=== PATIENT | male | born 1995 | race Caucasian/White ===

== ENCOUNTER 2021-09-28 12:40 | Outpatient (CLI) | payer MEDICAID, SELFPAY ==
--- NOTE | 2021-09-28 | ASPIG_PTH ---
PATIENT: JORGE SPARROW LOC: [facility] U#:[id number] AGE/SX: 26/M ROOM: RE09/28/[address]: Dr. Anupam Wade MD : 1995 BED: DIS: 09/28/2021 SPEC #: [id number] RECD: 09/28/21 12:37 STATUS: SHMUEL ARMOND #: [id number] MARIBEL: 09/28/21 00:[address]: Anupam Wade DEPT: CYTOLOGY RECD BY: Sagar Acevedo ENTERED: 09/28/21 13:08 SP TYPE: ASP OUT OTHR DR: Dr. Miguel Angel Rich, DO Tissues: A - Thyroid gland, NOS B - Thyroid gland, NOS Procedures: FNA Specimen Adequacy Special Stain Group II Surgery Specimen Level IV Cytology Other HEADER OPERATION: Left thyroid fine needle aspiration PRE-OP DIAGNOSIS: Left thyroid nodule TISSUE SUBMITTED: A - Left thyroid nodule fluid, B - Left thyroid nodule x4 slides DIAGNOSIS CYTOLOGY A. Fine needle aspiration, left thyroid nodule (cytospin and cell block): Atypical follicular cells of undetermined clinically significance. B. Fine needle aspiration, left thyroid nodule (smears): Negative for malignant cells. See comment. AM:orlin 10/01/2021 COMMENT B. Only very rare follicular cells are present. The specimen is inadequate for full evaluation. Clinical correlation is suggested. Case has been reviewed in consultation with Dr. Abdul who concurs with the above diagnosis. IDC:SJ CYTOLOGY STUDY Slides are reviewed. CYTOLOGY GROSS A - Received is 40 ml of red cloudy fluid labeled with the patient's name and and designated per the requisition as left thyroid. Submitted for cytology preparation including cell block. B - Received are four smears labeled with the patient's name and designated per the requisition as left thyroid. Submitted for staining. / orlin 09/28/2021 TC:? CPT: 40711, 62450 x2
== END 2021-09-28 23:59 | disposition home or self-care (01) ==
LOC: LABSPEC 12:45
PROVIDERS: PCP Family Medicine; Visit Provider Surgery
DX: E04.1 Nontoxic single thyroid nodule (principal)
CPT/HCPCS: 88161; 88172; 88305; 88313

== ENCOUNTER 2021-10-26 15:56 | Outpatient (CLI) | payer MEDICAID, SELFPAY ==
--- NOTE | 2021-10-26 | IMM_PTH ---
PATIENT: JORGE SPARROW LOC: [facility] U#:[id number] AGE/SX: 26/M ROOM: RE10/26/[address]: Dr. Anupam Wade MD : 1995 BED: DIS: 10/26/2021 SPEC #: [id number] RECD: 10/30/21 11:58 STATUS: SHMUEL LEAHY #: [id number] MARIBEL: 10/26/21 00:[address]: Anupam Wade DEPT: IMMUNOHISTOCHEMISTRY RECD BY: Bree Mendez ENTERED: 10/30/21 11:59 SP TYPE: IMMUNO OTHR DR: Dr. Miguel Angel Rich, Tissues: A - Thyroid gland, NOS Procedures: HBME (initial) CD56 (add) CK19 (add) GAL-3 (add) PHYSICIAN & INSTITUTION [place] [address] SPECIMEN INFORMATION: Tissue Source: A ? Left thyroid nodule Clinical Info: Left thyroid nodule Specimen Number: [id number] CPT code: 44823, 56859 x3 METHODOLOGY: Deparaffinized sections of prefer/formalin-fixed tissue or PAP/DQ stained slides are incubated with monoclonal/polyclonal antibodies/oligonucleotide probes. Localization is made via biotin free immunoperoxidase method. Appropriate controls are performed and reacted as expected. Results on target cell population are indicated in the following table: RESULTS: ANTIBODY / CLONE RESULT Block A HBME1 (HBME-1) positive CK19 (A53-B/A2.26) positive GAL3 (9C4) positive, dim CD56 (123C3.D5) negative These tests were developed and their performance characteristics determined by [facility]. They may not have been cleared or approved by the U.S. Food and Drug Administration. The FDA has determined that such clearance or approval is not necessary. The above immunohistochemical/dualISH markers are ordered and reviewed by the Pathologist. INTERPRETATION: A. Left thyroid nodule, fine needle aspiration (cell block): Atypical cells, suspicious for papillary thyroid carcinoma. AM:orlin 11/13/2021
--- NOTE | 2021-10-26 10:30 | FLU_PTH ---
PATIENT: JORGE SPARROW LOC: [facility] U#:[id number] AGE/SX: 26/M ROOM: RE10/26/[address]: Dr. Anupam Wade MD : 1995 BED: DIS: 10/26/2021 SPEC #: [id number] RECD: 10/26/21 15:50 STATUS: SHMUEL ARMOND #: [id number] MARIBEL: 10/26/21 10:[address]: Anupam Wade DEPT: CYTOLOGY RECD BY: Kristen Heath ENTERED: 10/29/21 08:24 SP TYPE: Fluid OTHR DR: Dr. Miguel Angel Rich DO Tissues: A - Thyroid gland, NOS B - Thyroid gland, NOS Procedures: Special Stain Group II Surgery Specimen Level IV Cytospin Fluid Cytology Other HEADER OPERATION: Left thyroid fine needle aspiration PRE-OP DIAGNOSIS: Left thyroid nodule TISSUE SUBMITTED: A ? Left thyroid nodule fluid, B ? Left thyroid nodule x4 slides DIAGNOSIS CYTOLOGY A. Fine needle aspiration, left thyroid nodule (smears and cell block): Atypical follicular cells suspicious for papillary thyroid carcinoma. See comment. B. Fine needle aspiration, left thyroid nodule (smears): Atypical follicular cells suspicious for papillary thyroid carcinoma. See comment. AM:orlin 11/13/2021 COMMENT A. The specimen is adequate for evaluation. Immunohistochemistry ([id number]) supports the above diagnosis. B. The specimen is adequate for evaluation. This case is seen in consultation with Dr. Olmstead of [employer] who concurs with the diagnosis. Complete consultative report is viewable in EMR. Reference is made to the patient's previous fine needle aspiration, left thyroid nodule ([id number]) in which atypical follicular cells of undetermined clinical significance were identified. CYTOLOGY STUDY Slides are reviewed. CYTOLOGY GROSS A - Received is 30 ml of pink cloudy fluid labeled with the patient's name and and designated per the requisition as left thyroid nodule. Submitted for cytology preparation including cell block. B - Received are four smears labeled with the patient's name and designated per the requisition as left thyroid nodule. Submitted for staining. / orlin 10/29/2021 TC:? CPT: 50570 x2, 55835
== END 2021-10-26 23:59 | disposition home or self-care (01) ==
LOC: LABSPEC 15:57
PROVIDERS: PCP Family Medicine; Visit Provider Surgery
DX: E04.1 Nontoxic single thyroid nodule (principal)
CPT/HCPCS: 88108; 88161; 88305; 88313; 88341; 88342

== ENCOUNTER 2021-11-26 16:46 | Outpatient (CLI) | payer MEDICAID, SELFPAY ==
[2021-11-26 18:20] LABS: Calcium,Total 8.8 mg/dL (8.5-10.1); T4 Total, Thyroxin 8.6 ug/dL (4.5-12.1)
[2021-11-26 18:22] LABS: T3 Total - Triiodothyronine 1.34 ng/mL (0.6-1.81)
[2021-11-27 07:43] LABS: PTHIN 39.7 pg/mL (18.4-80.1)
[2021-11-29 20:07] LABS: Vitamin D 1,25-Dihydroxy 35.4 pg/mL (19.9-79.3)
== END 2021-11-26 23:59 | disposition home or self-care (01) ==
PROVIDERS: PCP Family Medicine; Visit Provider Surgery
DX: C73 Malignant neoplasm of thyroid gland (principal)
CPT/HCPCS: 36415; 82310; 82652; 83970; 84436; 84443; 84480

== ENCOUNTER 2021-12-24 12:55 | Observation (INO) | payer MEDICAID, SELFPAY ==
[2021-12-21 10:53] LABS: Hematocrit 48.1 % (40-54); Hemoglobin 16.5 g/dL (13.0-16.5); Mean Corp Hgb Conc 34.3 g/dL (32-36); Mean Corpuscular Hgb 30.8 pg (27.0-32.0); Mean Corpuscular Volume 89.9 fL (80-94); Mean Platelet Vol. 10.6 fl (6.2-12.0); Platelet Count 266 K/mm3 (150-450); RBC Distribution Width CV 12.3 % (11.6-14.6); RBC Distribution Width SD 40.7 fl (35.1-43.9); Red Blood Count 5.35 M/mm3 (4.6-6.2); White Blood Count 5.2 K/mm3 (4.4-11.0)
[2021-12-21 11:18] LABS: Anion Gap 7 (5-15); BUN 11 mg/dL (7-18); BUN/Creat Ratio 13.8 RATIO (10-20); Calcium,Total 9.7 mg/dL (8.5-10.1); Chloride 104 mmol/L (98-107); EST Glomerular Filtration Rate 126 mL/min (>60); Est Glom Filt Rate - Afr Amer 153 mL/min (>60); Glucose 89 mg/dL (74-106); Potassium 4.4 mmol/L (3.5-5.1); Sodium Level 139 mmol/L (136-145)
[2021-12-24] VITALS (9 sets, daily range): BP systolic 101–160; BP diastolic 53–97; PULSE 92–110; RESP 16–20; TEMP 36.5–37.3; O2SAT 93–100; BMI 25.7
--- NOTE | 2021-12-24 | THYROID_PTH ---
PATIENT: JORGE SPARROW LOC: [facility] U#:[id number] AGE/SX: 26/M ROOM: AZ323 RE12/24/[address]: Dr. Anupam Wade MD : 1995 BED: 1 DIS: 12/25/2021 SPEC #: [id number] RECD: 12/24/21 11:53 STATUS: SHMUEL RESaundra #: [id number] MARIBEL: 12/24/21 00:[address]: Anupam Wade DEPT: SURGICAL PATHOLOGY RECD BY: Bree Mendez ENTERED: 12/24/21 12:45 SP TYPE: THYROID OTHR DR: DO Dr. Woodrow Barrientos MD Tissues: A - Parathyroid B - Thyroid gland, NOS C - Neck, NOS Procedures: Frozen Section (charge) Surgery Specimen Level IV Surgery Specimen Level V HEADER OPERATION: Total thyroidectomy with intraoperative nerve monitoring PRE-OP DIAGNOSIS: Left thyroid nodule TISSUE SUBMITTED: A - ? Left inferior parathyroid tissue biopsy, B ? Thyroid, suture mcgovern right superior pole, C ? Central neck tissue FROZEN SECTION DIAGNOSIS A. ? Left inferior parathyroid tissue, biopsy: Lymph node tissue, metastatic papillary carcinoma. ONEAL:orlin 12/24/2021 Case has been reviewed in consultation with Dr. Khan who concurs with the above diagnosis. IDC:AM MICROSCOPIC DIAGNOSIS A. ? Left inferior parathyroid tissue, biopsy: A portion of lymph node tissue with metastatic papillary carcinoma. B. Thyroid, total thyroidectomy: Papillary thyroid carcinoma. See cancer summary in the comment section. C. Central neck tissue, lymph node dissection: 11 out of 22 lymph nodes positive for metastatic carcinoma. See comment. ONEAL:orlin 12/26/2021 COMMENT THYROID CANCER SUMMARY Procedure: Total Thyroidectomy Tumor Focality: Unifocal Tumor Site: Isthmus and adjacent lower portion right and left lobes. Tumor Size: 2 x 1.5 x 1 cm Histologic Type: Papillary carcinoma, classic (usual, conventional). The tumor shows infiltrative pattern. Margins: Margins uninvolved by carcinoma. The tumor is <0.1 cm away from anterior and posterior margins. Angioinvasion: Not identified Lymphatic Invasion: Not identified Perineural Invasion: Not identified Extrathyroidal Extension: Present in the adjacent parathyroidal adipose tissue. Regional Lymph Nodes (specimen C): Number of lymph nodes Examined: 22 Number of Lymph nodes involved: 11 John Levels Involved: Level , perithyroidal (central compartment dissection) Size of Largest Metastatic Deposit: 2.5 cm The largest metastatic focus consists of the matted group of lymph nodes. Extranodal extension: Present (<0.1 cm in greatest dimension). John level examined: Level perithyroidal (central compartment dissection. Ancillary Studies: Not performed. Additional Pathologic Findings: Unremarkable parathyroid gland tissue (present in right superior, right inferior and left superior portion of the thyroid gland. Clinical History: Please make reference to previous specimen [id number]), fine needle aspiration, left thyroid nodule with diagnosis of atypical follicular cells suspicious for papillary thyroid carcinoma. PATHOLOGIC STAGE: pT1b pN1a pMx The above summary is in compliance with [employer] (CAP) Cancer Protocols Checklist and [place] Joint Committee on Cancer (AJCC), Staging Manual, 8th Ed. Case has been reviewed in consultation with Dr. Khan who concurs with the above diagnosis. IDC:AM MICROSCOPIC DESCRIPTION Slides are reviewed. GROSS DESCRIPTION A - Received fresh for frozen section diagnosis labeled with the patient's name is a specimen designated ? left inferior parathyroid. The specimen consists of a piece of pink-red soft tissue measuring 0.5 x 0.4 x 0.1 cm and weighing <0.1 gm. The entire specimen is submitted for frozen section diagnosis in one cassette. / ONEAL:orlin 12/24/2021 B - Received in fixative is one container labeled with the patient's name and designated thyroid, suture mcgovern right superior pole. The specimen consists of a total thyroidectomy specimen weighing 12.3 gm. The right lobe measures 4 x 2 x 0.7 cm and the left lobe measures 4.5 x 2 x 1.5 cm and the isthmus measures 1.5 x 0.3 x 0.5 cm. The specimen is inked as follows: posterior surface - black, anterior surface right lobe - blue, left lobe - green and isthmus - yellow. Sections reveal a hernandez-white solid nodule involving lower portion of the right lobe, left lobe and isthmus measuring 2 x 1.5 x 1 cm. Sections of the rest of the right lobe, left lobe reveal hernandez, solid cut surfaces. The entire specimen is submitted in 14 cassettes as follows: 1 - isthmus, 2-6 - right lobe (2 containing most superior portion and 6 containing most inferior portion), 7-14 - left lobe (7 containing most superior portion and 14 containing most inferior portion). / SJ:orlin 12/25/2021 C - Received in fixative is one container labeled with the patient's name and designated central neck tissue. The specimen consists of an irregular piece of soft tissue measuring 6 x 4 x 1.5 cm. Multiple nodules consistent with lymph nodes are noted. Largest lymph node consists of matted group of lymph nodes and measures 2.5 cm in greatest dimension. Also present in the container are two detached pieces of tissue measuring in aggregate 1.5 x 1 x 0.5 cm. The lymph nodes are submitted in entirety in ten cassettes as follows: 1-3 - largest matted group of lymph nodes, 4 - one bisected lymph node, 5 - one bisected lymph node, 6-9 - each cassette containing multiple lymph nodes, 10 - one bisected lymph node. / SJ:orlin 12/25/2021 TC:0 CPT: 42065 x2, 84925, 40384
[2021-12-24] MEDS: Lactated Ringers 1,000 ML 15 ML IV (06:41)
--- NOTE | 2021-12-24 07:25 | PCM.HP.BLA ---
History and Physical Date of Admission: 12/24/21 Date of Service: 11/26/21 MR#:[id number]:[id number]: JORGE SPARROW [facility] #:[id number]:1995 Provider:Dr. Anupam Wade MDAge/Sex: 26/M [facility] [place] Intake Intake Visit Reasons: Discuss thyroid bx results Chief Complaint: Discuss thyroid biopsy results [employer] Required: No Accompanied by: Mother Is patient in pain?: No Allergies No Known Allergies Allergy (Verified 11/26/21 15:24) Medications NK 11/26/21 [History Confirmed 11/26/21] [facility] Medical History (Updated 11/26/21 @ 17:[address] Anupam Wade MD) Acid reflux Anxiety Arthritis Coarctation of aorta Papillary thyroid carcinoma Jorge Barratt syndrome Surgical History History of repair of coarctation of aorta Family History Grandmother Thyroid cancer His grandmother states her extended family has a history of thyroid cancer including her sister and some cousins. Social History Smoking Status: Never smoker alcohol intake: never substance use type: does not use HPI HPI HPI: JORGE SPARROW, is a 26 M who presents to the office today for newly diagnosed left thyroid nodule. Patient underwent repeat FNA with submission for molecular testing on his last visit. He presents with his mother and grandmother (guardian) at today's visit. He happily announces that his throat feels better now that he has been drinking more Gatorade. His grandmother relates that he has been evaluated by an ear nose and throat physician for his chronic cough and is due to return for allergy testing. They do state that a deep cleaning was undertaken in Jorge's room, and his cough symptoms have significantly improved. They deny noting any recent complaints of new lumps or bumps. Jorge continues to complain of some low energy levels following a upper respiratory infection earlier this year. Below is recapitulated from patient's initial surgical consultation for ease of review: They are referred for surgical consultation from Dr. Rich of [facility] physicians. This was discovered incidentally during a work-up for fatigue. Patient presents in the company of his grandparents are his legal guardians. They assist in providing much of the history. They state that Jorge is normally up at the crack of Kimi and has to be coaxed to go to bed, however, starting late last summer he was sleeping in and not able to go more than a couple hours without a nap. They state no formal diagnosis was ever made, but overall this is better. They do acknowledge that he is still less active, but seems to be sleeping better. Jorge does experience difficulty with swallowing. He finds this particular trouble some when swallowing water. His grandparents confirm this has been a lifelong problem but the nuisance of it has become more bothersome to Jorge. His grandmother adds that he has a bad gag reflex and also has habits of eating and drinking faster than he should. He complains of a periodic cough that has been present for the past couple of years but may be worse now. The only thing that he or his grandparents are able to offer is that it seems to be worse in the winter months and they initially believe that Jorge may be somehow allergic to dust from HVAC system. They do appreciate new voice changes with some occasional hoarseness. Jorge states when he develops phlegm his voice gets deeper and he must cough to get this back. His grandmother suggest this is a rather new development. They do not have a history of snoring/sleep apnea. Additionally, their weight has been stable and they do not have a history of weight gain or loss. They do not have a history of heat or cold intolerance. They do have a family history of thyroid disorders or endocrinopathies. His grandmother states that both she and her sister required total thyroidectomy for diagnoses of thyroid cancer. She required for subsequent treatments with radioactive iodine while her sister required a single treatment. She adds that her father's brothers also were diagnosed with thyroid cancer and required surgery. She adds that one of her uncles actually succumbed to a diagnosis of advanced thyroid cancer. There is no history of prior radiation exposure. Previous work-up as included thyroid ultrasound which was read as a right thyroid lobe measuring 4.0 x 1.7 x 1.6 cm in the left thyroid lobe measuring 3.2 x 1.3 x 1.5 cm. It also demonstrated a 2.2 x 0.6 x 0.8 TI-RADS 4 nodule in the left thyroid lobe. An FNA has not been performed. Other tests include: TSH of 4.28 (07/10/2021) ROS General General: Yes fatigue; No weight change, appetite, colon cancer, breast cancer or weakness HEENT HEENT: Yes difficulty swallowing and swollen glands; No eye injury, eye surgery or hoarseness Endo Endocrine: No thyroid disease, diabetes mellitus, thyroid cancer, Hair loss, heat intolerance or cold intolerance Skin Skin: No rash or changing moles Musc Musculoskeletal: Yes back problems and arthritis; No rheumatoid arthritis, gout or joint pain Cardio Cardiovascular: No murmur, pacemaker, heart disease, atrial fibrillation, high blood pressure, heart attack, heart stent, palpitations, shortness of breat with exertion or chest pain Additional Details: Heart surgery as a baby Psych Psychiatric: Yes anxiety; No depression or hearing voices Resp Respiratory: No shortness of breath, No sleep apnea, Yes cough, No COPD, No asthma, No emphysema and No wheezing Gastro Gastrointestinal: No abdominal pain, No nausea or vomiting, No diarrhea, No constipation, No blood in stool, Yes acid reflux, No hemorrhoids, No ulcers, No gallbladder problem and No black,tarry stools Antonio Hematologic: No blood thinners, No blood disorders, No bleeding, No anemia and No blood clots Neuro Neurologic: No system reviewed and no additional complaints, except as documented, No as per HPI, No abnormal gait, No abnormal hearing, No abnormal movements, No abnormal speech, No behavioral changes, No burning sensations, No confusion, No convulsions, No disequilibrium, No dizziness, No localized weakness, No frequent falls, No headache(s), No lack of coordination, No loss of vision, No memory loss, No numbness, No other visual disturbances, No radicular pain, No restless legs, No sensory deficit, No syncope, No tingling, No tremor(s), No weakness and No other Exam Const General: cooperative, healthy appearing and anxious Orientation: alert, awake and oriented x3 Neck Lymphatic: no lymphadenopathy noted Resp Effort & Inspection: normal respiratory effort Auscultation: clear to auscultation bilaterally, no rales, no rhonchi and no wheezes Assessment and Plan Assessment and Plan (1) Left thyroid nodule: Status: Acute Comment: This is a 26-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 This nodule was 2.2 cm in maximal dimension and was given a TI-RADS rating of 4. Given this rating, and patient's significant family history, fine-needle biopsy was recommended and undertaken. Initial FNA was consistent with a [place] 3 rating, however repeat FNA returned consistent with a [place] 5 (suspicious for papillary thyroid carcinoma). Reflex molecular testing was performed to a limited degree and no effusion variants were identified. BRAF V600 E mutations were also not identified. Patient and his family were informed of these test results and I have recommended total thyroidectomy with intraoperative nerve monitoring given that this nodule favors the thyroid isthmus and would be considered at least a T2 lesion if final pathology confirms carcinoma. Given the suspicion for papillary thyroid carcinoma, I have discussed the possibility of needing to harvest lymph nodes at the same time as patient's thyroidectomy. We also held a discussion around the merits and drawbacks of prophylactic central lymph node dissection. This included discussions related to possibility of postoperative hypoparathyroidism as well as nerve injury. Both patients mother and grandmother are interested in a left central neck dissection done prophylactically. Lastly, patient's grandmother strongly wishes for radioactive iodine to be considered during the postoperative phase, she relates that one of her family members from unchecked thyroid cancer after declining radioactive iodine. I assured her that this would be a discussion made jointly with endocrinology and based upon patient's thyroglobulin, whole-body scan, other variables. 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 His grandmother states that most recently he has been diagnosed with low vitamin D levels, but these have not been rechecked for at least a month and a half. Based on the above, I have outlined expectations for a observational stay following total thyroidectomy to monitor patient's calcium postoperatively. We will plan for a surgery in the next 2 to 4 weeks with updated labs in the interim. Orders: Referrals: Endocrinology Plan - Dr. Anupam Wade MD: ?Update thyroid functions, calcium, PTH, and vitamin D ?Referral to Dr. Lombardi of endocrinology given patient's history of hypercalcemia and need for ongoing assistance following surgery ?Tentatively plan for total thyroidectomy with left central neck dissection using intraoperative nerve monitoring in 2 to 4 weeks I have re-examined the patient. There are no clinical changes since date of exam. Expectations for the case as well as the postoperative recovery were reviewed with patient and his guardians (grandparents). We will proceed as discussed above with total thyroidectomy using intraoperative nerve monitoring and possible left central neck dissection.
[2021-12-24] MEDS: Bupivacaine Mpf 0.5% 30 ML VIAL (08:10)
--- NOTE | 2021-12-24 12:50 | PCM.OPRPT ---
Problems Associated Problem List Diagnoses (1) Papillary thyroid carcinoma: (2) Left thyroid nodule: Report of Operation Date of Procedure: 12/24/21 Pre-Operative Diagnosis: 1. Left thyroid nodule suspicious for papillary thyroid carcinoma Post-Operative Diagnosis: 1. Left thyroid nodule suspicious for papillary thyroid carcinoma 2. Clinically suspicious level 6 lymph nodes (later confirmed with frozen section is metastatic papillary thyroid carcinoma) Surgery/Procedure Performed:: 1. Total thyroidectomy with intraoperative nerve monitoring 2. Bilateral central neck dissection Description of Surgical Findings:: ? Grossly intact right superior parathyroid gland ? Grossly intact left superior parathyroid gland ? Positive nerve signals on the right and left recurrent laryngeal nerves Surgeon: Anupam Wade appliance service representative: Trace Sevilla Type of Anesthesia: General/Supplemental Anesthesiologist: Woodrow Christina Specimen's removed: 1. Total thyroidectomy 2. Central neck contents Drains: 15F round Solis Estimated Blood Loss (mL): 50 Description of Procedure: After appropriate identification in the preoperative holding area, the patient was brought to the operating room where he was positioned supine on the operating room table. Induction of general endotracheal anesthetic was begun and a NIMS tube was placed under glidescope view to confirm coaptation with the vocal cords anteriorly. Tube was then secured and the patient was positioned with a shoulder roll so that her head was in extension but supported. The Nims electrodes were placed and connected to the monitor. We had appropriate resistance showing on the monitor and tapping at the level of the cricoid produced a graphical representation of the impulse on the monitor. Patient's neck was then prepped and draped in usual sterile fashion and a formal timeout was conducted from those present. The lowest skin fold to the sternal notch was selected for incision site (this resided approximately 2 fingerbreadths cephalad to the notch). An incision was extended for 2-1/2 cm on either side of midline to produce a 5 cm transverse cervical incision. Electrocautery was used to deepen this incision through the level of the platysma. Subplatysmal flaps were raised with the use of electrocautery and blunt dissection. The strap muscles were then opened along the medial raphe bringing us down to the level of the thyroid. Capsular attachments to the thyroid were divided with the use of LigaSure or bluntly dissected away. Retractors were placed regarding excellent visualization of the superior pole of the thyroid. The vessels of the superior pole were sequentially ligated with the use of the LigaSure device. As we moved towards the thyroid gland away from the pole vessels, we lower careful to identify the superior parathyroid gland and preserve its vascular pedicle. We then moved inferiorly and divided those polar vessels with LigaSure. The inferior parathyroid gland was grossly visualized and preserved with this division. With the poles freed the thyroid was mobilized medially. I bluntly the remaining strap muscle fibers from the thyroid capsule and using blunt dissection parallel to the presumed course of the recurrent laryngeal nerve and exposed the tracheoesophageal groove. The gland appeared to be somewhat more adherent then usual to the trachea. The area around the ligament of Santamaria seemed very close to the presumed insertion of the recurrent laryngeal nerve, so I elected to leave minuscule thyroid remnants at these locations by first ligating the thyroid tissue and a 4-0 silk suture and sharply dissecting off the gland. Once the thyroid was elevated to the anterior surface of the trachea, I use electrocautery to remove the gland from the remaining attachments to the trachea. A similar dissection pattern was then continued onto the right side with separation of the strap muscles from the thyroid capsule, division of the superior pole vessels using LigaSure, and then elevation of the thyroid gland medially. In the inferior pole, these vessels were also taken with LigaSure and care was taken to avoid inadvertent parathyroid injury. Again, the recurrent laryngeal nerve was not immediately visualized, but near the ligament of Santamaria, the thyroid tissue was densely adherent to the trachea and I elected to leave a minuscule remnant and a silk ligature by sharply amputating the remainder of the gland. Gland was then fully removed from the anterior surface of the trachea and was oriented with a silk tie along the superior pole of the right thyroid lobe. I then palpated along the level 6 lymph nodes in the pretracheal space and found firm nodularity with this exam. Upon closer inspection, there was a large, reddened?grossly positive lymph node. With this finding, I elected to perform a therapeutic central neck dissection. This was performed by bluntly the fibrofatty/lymphatic tissue from the medial aspect of the carotid and elevating the thymus away from the innominate vessel inferiorly. As this process was conducted, initially I tried to preserve the left inferior parathyroid gland, but it became intimately involved in the specimen and its vascular supply could not be salvaged. I did also identify the course of the recurrent laryngeal nerve as it entered the surgical field and traced it back to the tracheoesophageal groove. The specimen was then bluntly and removed from the medial aspect of the nerve taking care to leave a safe margin to the nerve. This margin contained only fatty tissue. A strong nerve signal was confirmed with our Nims monitor. With the left side completed, a similar process was used for the right side, and again the recurrent laryngeal nerve was identified visually. This nerve had a more oblique course into our surgical field, but the nerve signal with our Nims monitor was strong. Once the specimen was completely from the vessels inferiorly and laterally as well as the trachea medially, it was assessed for signs of parathyroid tissue. An area along the patient's left central neck tissue was scrutinized and a small sample was sent for frozen section to confirm identity. The remaining specimen was then held on sterile saline. Digital exam was made of the wound cavity and no additional nodularity was appreciated. Pressure was applied to the surgical cavity and there was some slight oozing along the anterior surface of the trachea well away from the recurrent laryngeal nerve where selective electrocautery was applied. Closer to the nerve there was some additional oozing and Surgicel hemostatic agent was placed while pressure was applied. With reinspection, I did visually confirm the presence of the right superior parathyroid gland, probable left superior parathyroid gland and we reconfirmed signals on our recurrent laryngeal nerves bilaterally. There was still some slight oozing in the base of the surgical cavity so I elected to place a drain through a separate stab incision in the patient's neck. Here a 15 [place] Citizen round Solis drain was placed and secured to the skin with a 3-0 nylon suture. At this time, frozen section returned and was unfortunately consistent with lymphatic tissue containing evidence of metastatic papillary thyroid carcinoma. I reexamined the central neck contents specimen, but was unable to identify any further parathyroid candidates. Therefore it was passed off the field for permanent pathologic processing and I began closure. The strap muscles were closed with a running 3-0 Vicryl stitch leaving a small gap at the inferior aspect of the suture line. The platysmal flaps were closed with interrupted 3-0 Vicryl. Some additional local anesthetic was infiltrated throughout the dermis and the skin was closed in a subcuticular fashion using 4-0 Monocryl. Steri-Strips were applied. Telfa and Tegaderm were used as a dressing. A separate drain sponge was fashioned around the patient's operative drain. The patient was then awakened from anesthetic without event and was taken to PACU for ongoing recovery. Complications None Admit VTE Documentation VTE Present on Admission: Yes VTE Mechan Device Prophylaxis: SCD's Procedures Endocrine CF Procedures [id number]: [id number] Removal of thyroid
[2021-12-24 13:21] LABS: Bedside Glucose 115 mg/dL (74-106)
[2021-12-24] MEDS: 0.9% Normal Saline 1,000 ML 125 ML IV (14:31)
[2021-12-24 14:55] LABS: PTHIN < 6.0 pg/mL (18.4-80.1)
[2021-12-24] MEDS: Calcium Carb/Vitamin D 1 TABLET Tablet PO (16:29)
[2021-12-24] MEDS: Acetaminophen 500 MG Tablet PO ×2 (16:29→22:43)
[2021-12-24] MEDS: BENZOCAINE/MENTHOL 1 LOZENGE MUCOUS MEM (16:29)
[2021-12-24] MEDS: Calcitriol 0.25 MCG Capsule 0.5 MCG PO (18:22)
[2021-12-24] MEDS: Ondansetron 4 MG/2 ML Vial IV (18:51)
[2021-12-24] MEDS: 0.9% Normal Saline 1,000 ML 75 ML IV (22:40)
[2021-12-24] MEDS: Scopolamine 1mg/72hr Patch 1 PATCH TD (22:47)
[2021-12-25 01:04] VITALS: BP 120/74; PULSE 104; RESP 18; TEMP 36.9; O2SAT 94
[2021-12-25 06:22] LABS: Absolute Lymphocyte Count 2.36 X10^3/uL (0.83-4.51); Absolute Neutrophil Count 9.2 X10^3/uL (2.0-7.7); Basophil# 0.02 X10^3/uL; Basophil% 0.2 % (0-1); Hematocrit 39.9 % (40-54); Hemoglobin 13.4 g/dL (13.0-16.5); Lymphocyte # 2.36 X10^3/ul (0.83-4.51); Lymphocyte % 18.1 % (19-41); Mean Corp Hgb Conc 33.6 g/dL (32-36); Mean Corpuscular Hgb 29.9 pg (27.0-32.0); Mean Corpuscular Volume 89.1 fL (80-94); Mean Platelet Vol. 10.5 fl (6.2-12.0); Monocyte# 1.37 X10^3/uL; Monocyte% 10.5 % (0-10); NRBC Flagged by Analyzer 0 % (0-5); Neutrophil # 9.24 X10^3/uL (2.7-7.7); Neutrophil % 70.7 % (47-70); Platelet Count 244 K/mm3 (150-450); RBC Distribution Width CV 12.7 % (11.6-14.6); RBC Distribution Width SD 41.7 fl (35.1-43.9); Red Blood Count 4.48 M/mm3 (4.6-6.2); White Blood Count 13.1 K/mm3 (4.4-11.0)
[2021-12-25 06:51] LABS: Anion Gap 9 (5-15); BUN 12 mg/dL (7-18); BUN/Creat Ratio 18.7 RATIO (10-20); Calcium,Total 7.2 mg/dL (8.5-10.1); Chloride 105 mmol/L (98-107); Creatinine, Serum 0.64 mg/dL (0.70-1.30); EST Glomerular Filtration Rate 162 mL/min (>60); Est Glom Filt Rate - Afr Amer 196 mL/min (>60); Estimated Creatinine Clearance 143.24 ml/min; Glucose 112 mg/dL (74-106); Magnesium 1.9 mg/dL (1.6-2.6); Potassium 3.6 mmol/L (3.5-5.1); Sodium Level 141 mmol/L (136-145)
[2021-12-25 06:57] VITALS: BP 126/71; PULSE 92; RESP 18; TEMP 36.8; O2SAT 99
[2021-12-25] MEDS: Levothyroxine 125 MCG Tablet PO (07:00)
--- NOTE | 2021-12-25 08:00 | PN.SURG_ITS ---
Subjective Subjective Patient seen and examined during AM rounds. His grandmother assists with the history and states that he had very forceful vomiting overnight. She also reports that Guido was restless and walked numerous times in the hallways until approximately 3 AM. Guido complains of some discomfort in his neck which she attributes to the pulling of the tape around his cervical drain. When questioned directly, he denies any numbness or tingling about his fingertips and states this is only present in his neck. Objective Data Objective Data Vital Signs: Vital Signs Temp Pulse Resp BP Pulse Ox 98.2 F 92 18 126/71 H 99 12/25/21 06:57 12/25/21 06:57 12/25/21 06:57 12/25/21 06:57 12/25/21 06:57 Oxygen Delivery Method Room Air Weight: 145 lb 8.081 oz Body Mass Index (BMI) 25.7 Intake & Output: Intake and Output for Last 24 Hours 12/23/21 12/24/21 12/25/21 23:59 23:59 23:59 Intake Total 1362.67 / 1362.67 500 / 500 Output Total 990 / 990 45 / 45 Balance 372.67 / 372.67 455 / 455 Lab / Micro Data Result Diagrams: 12/25/21 06:10 12/25/21 06:10 Labs: Laboratory Results - last 24 hr 12/24/21 13:12: POC Glucose 115 H 12/24/21 13:25: PTH Intact < 6.0 L 12/25/21 06:10: WBC 13.1 H, RBC 4.48 L, Hgb 13.4, Hct 39.9 L, MCV 89.1, MCH 29.9, MCHC 33.6, RDW Std Deviation 41.7, RDW Coeff of Marry 12.7, Plt Count 244, MPV 10.5, Immature Gran % (Auto) 0.500, Neut % (Auto) 70.7 H, Lymph % (Auto) 18.1 L, Stonewall % (Auto) 10.5 H, Eos % (Auto) 0.0, Baso % (Auto) 0.2, Absolute Neuts (auto) 9.2 H, Absolute Lymphs (auto) 2.36, Nucleated RBC % 0 12/25/21 06:10: Sodium 141, Potassium 3.6, Chloride 105, Carbon Dioxide 27.0, Anion Gap 9, BUN 12, Creatinine 0.64 L, Estim Creat Clear Calc 143.24, Est GFR (MDRD) Af Amer 196, Est GFR (MDRD) Non-Af 162, BUN/Creatinine Ratio 18.7, Glucose 112 H, Calcium 7.2 L, Magnesium 1.9 Micro: Microbiology 12/21/21 10:09 Interface Orders SARS-CoV-2 Antigen (Rapid) - Final Physical Exam Narrative Patient's voice is clear with only mild hoarseness Neck Neck Narrative: Patient with operative dressings are clean and intact. Soft tissues remain soft without evidence of underlying hematoma. Cervical drain in place has been emptied, but there is some thin serous drainage in the drain tubing. Resp normal respiratory effort Assessment & Plan Assessment/Plan (1) Status post total thyroidectomy: PLAN: Patient postoperative day 1 from total thyroidectomy with bilateral central neck dissection. Overall, patient is recovering well. He did have some nausea and vomiting overnight that responded well to placement of a scopolamine patch. Complaints today of discomfort around his drain site, but this seems to be coming from his tape. Unfortunately, he did have some increased output following his nausea and vomiting episode overnight. Therefore, I have instructed him and his grandmother the safest thing is to discharge him with the drain and follow the outputs. I would plan to follow-up with him as an outpatient in 2 days for hopeful drain pull at that time. Additionally, patient's calcium is quite low this morning despite empirical supplementation. I will therefore double the supplementation. This is an expected result given probable loss of both inferior parathyroid glands with his neck dissection. Postoperative instructions/expectations were reviewed. Both Guido and his grandmother acknowledged understanding and we will plan to follow-up with them in 2 days time. ? Advance to regular, soft diet ? Hep-Lock IV ? 1000 mg calcium carbonate with vitamin D 3 times daily ? 0.5 calcitriol daily ? 112 mcg levothyroxine ? Patient instructed to continue elevation of head of bed and icing throughout today Charges/Coding Visit Charges Inpatient E&M: 73673 Subs Hosp L2
[2021-12-25] MEDS: Calcium Carb/Vitamin D 1 TABLET Tablet 2 TABLET PO (08:37)
--- NOTE | 2021-12-25 08:39 | DCINST_ITS ---
Discharge Instructions Diet Discharge Diet: Light diet - advance as tolerated Activity Discharge Activity: May Not Shower (while drain is in place) Lifting Restrictions: 10 pounds Dressing / Incision Call your doctor if your incision/area has: Continuous Slow Oozing, Sudden Increased Bleeding, Increased Pain/ Swelling, Increased Redness, Foul Smelling Discharge and Swelling at the incision site Call your doctor if you observe: Fever of 101 or Higher, Coldness, Increased Pain and Shortness of breath Suture Line Care: Avoid Pulling/Pushing and Avoid Pinching/Bending Change Dressing in: leave in place till F/U Cleanse incision/area with: Keep Dressing Clean & Dry Follow Up Care Please Follow Up With: Anupam Wade MD When: Follow-up on 12/27 at 2:[address] Wade. Bring your drain record. You will need to obtain labs prior to your appointment. Test Results: Test results from this visit will be discussed in further detail at your follow-up appointment, if applicable. Discharge Plan Admission Admit Date/Time: 12/24/21 14:34 Primary Reason for Your Visit: Papillary thyroid cancer Attending Provider: Anupam Wade Primary Care Provider: Miguel Angel Rich Consulting Providers: Woodrow Christina Instructions Additional Instructions / Restrictions: We are recommending alternating between Tylenol and Ibuprofen for pain medication as needed. Recommend elevating the head of the bed at a 30 degree until the drain is removed. Recommend applying ice to the incisional area today only. You may start with soft foods i.e. soups, mashed potatoes, applesauce, etc. Advance as tolerated. You will be going home with a drain. Recommend recording the output on a piece of paper each time you empty the drain. Discharge Orders/Prescriptions Prescriptions: New calcitriol 0.25 mcg Capsule 0.5 mcg PO DAILY Qty: 14 RF: 1 calcium carbonate-vitamin D3 [Oyster Shell Calcium-Vit D3] 500 mg-5 mcg (200 unit) Tablet 2 tab PO TIDCM 30 Days Qty: 180 RF: 0 levothyroxine 125 mcg Tablet 125 mcg PO DAILY@0600 Qty: 30 RF: 0 ondansetron 4 mg tablet,disintegrating 4 mg PO Q6H PRN (Reason: nausea and vomiting) 7 Days Qty: 21 RF: 0 Continued guaifenesin [Mucinex] 600 mg tablet extended release 12hr 600 mg PO Q12H PRN (Reason: Congestion) RF: 0 loratadine [Claritin] 10 mg tablet 10 mg PO DAILY PRN (Reason: seasonal allergies) RF: 0 Other Ambulatory Orders: PTHIN (Routine) Timeframe: 20211227 Facility: [facility] - Location: Laboratory Ordered By: Natasha HAM Calcium,Total (Stat) Timeframe: 20211227 Facility: [facility] - Location: Laboratory, [facility] Ordered By: Natasha HAM Referrals / Follow Up: Miguel Angel Rich DO [Primary Care Provider] - Disposition Disposition (needs filled in before D/C Order can be placed): Home, Self Care
--- NOTE | 2021-12-25 09:05 | CASEMGMT ---
XAVIER CHANCE Assessment: Face to Face with pt for initial transition planning/care coordination assessment. RN ROBSON introduced self and role at [facility], pt voices understanding and consents to assessment. Pt is A/O x4 and answers all questions appropriately at this time. Pt sitting up in chair with guardian Joanna Alamo at bedside. Care providers, pharmacy, and demographics verified/updated. Assessment completed with pt and guardian input. Admitting Dx: total thyroid with nerve monitoring PCP:Hilario Specialists:HOWARD Wade; [facility], cardio; ruba Lombardi; Ryan, ENT Preferred Pharmacy: [facility] Retail Insurance: [employer] Prescription Benefit: yes LW/HPOA: Pt denies having a LW/DPOA and denies need for info regarding AD. LNOK: Joanna Alamo, grandmother; Melvin Alamo, grandfather Living Arrangements: Pt lives with grandmother and grandfather in a single story house with 2 steps to enter. Pt reports he is I in ADL's and denies concerns at home. Transportation: Pt grandfather provides transportation or [place] through [place] to [facility]. DME/HHC/SNF: Pt denies having any DME, hx of HHC or SNF stays. Pt states no concerns with going home at time of dc. Pt grandmother will learn drain care and feels comfortable with this. Pt/grandmother states no further concerns/needs. CM to follow. Advised pt to ask CM if any further question/concerns/needs arise, voices understanding. Pt Goal: Home Plan: Home
[2021-12-25] MEDS: Calcitriol 0.25 MCG Capsule 0.5 MCG PO (10:03)
[2021-12-25 14:17] LABS: PTHIN < 6.3 pg/mL (18.4-80.1)
== END 2021-12-25 10:41 | disposition home or self-care (01) | DRG 404 ==
LOC: SDC 13:23 → MS3 14:15
PROVIDERS: Anesthesiology; Admitting Provider Surgery; PCP Family Medicine; Referring Provider Surgery; Visit Provider Surgery
PROC: (CPT 60252; principal; 2021-12-24 07:15)
DX: C73 Malignant neoplasm of thyroid gland (principal); C77.9 Secondary and unspecified malignant neoplasm of lymph node, unspecified; E04.1 Nontoxic single thyroid nodule; Z80.8 Family history of malignant neoplasm of other organs or systems
CPT/HCPCS: 60252; 00320; A4648; 36415; 80048; 82962; 83735; 83970; 85025; 85027; 87426; 88305; 88307; 88331; 96361; 96374; 99221; C9803; J7030; J7120; G0378; J2405; J3490

== ENCOUNTER → 2021-12-27 | Outpatient (CLI) | payer MEDICAID, SELFPAY ==
[2021-12-27 12:12] LABS: Calcium,Total 7.4 mg/dL (8.5-10.1)
[2021-12-27 12:43] LABS: PTHIN < 6.3 pg/mL (18.4-80.1)
== END | disposition home or self-care (01) ==
LOC: LAB 10:45
PROVIDERS: PCP Family Medicine; Referring Provider Physician Assistant; Visit Provider Physician Assistant
DX: C73 Malignant neoplasm of thyroid gland (principal)
CPT/HCPCS: 36415; 82310; 83970

== ENCOUNTER 2022-01-03 12:36 | Emergency (ER) | payer MEDICAID, SELFPAY ==
[2022-01-03 12:37] VITALS: BP 170/112; PULSE 105; RESP 16; TEMP 36.7; O2SAT 97; BMI 24.7
--- NOTE | 2022-01-03 12:44 | EKG12_ITS ---
Test Reason : Blood Pressure : / mmHG Vent. Rate : 120 BPM Atrial Rate : 120 BPM P-R Int : 122 ms QRS Dur : 104 ms QT Int : 370 ms P-R-T Axes : 054 074 -36 degrees QTc Int : [address] & T wave abnormality, consider lateral ischemia Prolonged QT Abnormal ECG Confirmed by YUMI GOLDBERG, KM ([id number]), story editor BLADE VELASQUEZ ([id number]) on 01/07/2022 9:48:46 AM Referred By: Confirmed By:PAULINA EASON MD
[2022-01-03] MEDS: 0.9% Normal Saline 1,000 ML 999 ML IV (13:05)
--- NOTE | 2022-01-03 13:22 | EDS_ITS ---
HPI History of Present Illness Chief Complaint: Abn Labs Narrative Narrative: 26-year-old male status post thyroid carcinoma with total thyroidectomy presenting after blood draw was done today and follow-up. Apparently his calcium was elevated over 14. Patient reports no symptoms. He s tates that he is on calcium supplements including calcitriol and calcium carbonate. He was counseled to discontinue the calcitriol today. He is to continue the calcium carbonate. He was sent to the ER for IV fluids due to hypercalcemia. PFSH PFS Medical History Acid reflux Anxiety Arthritis Autism Baby teeth Cardiology follow-up encounter Chronic cough Coarctation of aorta COVID Difficult intravenous access High cholesterol History of asthma Leg cramps Non-smoker Papillary thyroid carcinoma Postoperative primary hypothyroidism RLS (restless legs syndrome) Jorge Barratt syndrome Home Medications guaifenesin 600 mg tablet, extended release 12 hr 600 mg PO Q12H PRN 11/29/21 [History Last Taken Unknown] loratadine 10 mg tablet 10 mg PO DAILY PRN 11/29/21 [History Last Taken Unknown] calcitriol 0.5 mcg PO DAILY #14 cap 12/25/21 [Rx Last Taken Unknown] calcium carbonate-vitamin D3 [Oyster Shell Calcium-Vit D3] 2 tab PO TIDCM 30 Days #180 tab 12/25/21 [Rx Last Taken Unknown] levothyroxine 112 mcg capsule 112 mcg PO DAILY #30 cap 12/25/21 [Rx Last Taken Unknown] ondansetron 4 mg PO Q6H PRN 7 Days #21 tab 12/25/21 [Rx Last Taken Unknown] Allergy/AdvReac Type Severity Reaction Status Date / Time No Known Allergies Allergy Verified 12/27/21 11:50 Family History Grandmother Thyroid cancer His grandmother states her extended family has a history of thyroid cancer including her sister and some cousins. Surgical History History of angioplasty History of dental surgery History of hernia surgery History of repair of coarctation of aorta History of total thyroidectomy Social History Smoking Status: Never smoker alcohol intake: never substance use type: does not use ROS ROS ED Constitutional Constitutional ED: Denies chills, fever(s) or sweats Eyes Eyes: Denies blurry vision or change in vision ENT ENT ED: Denies ear pain or sore throat Cardiovascular Cardiovascular: Denies chest pain, palpitations or racing heartbeat Respiratory/Chest Respiratory/Chest: Denies cough, dyspnea or sputum Gastrointestinal Gastrointestinal: Denies abdominal pain, constipation, diarrhea, nausea or vomiting Genitourinary Genitourinary ED: Denies dysuria, hematuria or urinary frequency Musculoskeletal Musculoskeletal: Denies arthralgias, myalgias or neck pain Integumentary Denies abscess, Abrasions or rash Neurologic Neurologic: Denies headache(s), paresthesias or weakness Psychiatric Psychiatric: Denies anxiety, depression, suicidal ideation or suicidal thoughts Endocrine Endocrinology: Denies polydipsia or polyuria EXAM Physical Exam Const Vital Signs: 01/03/22 12:37 01/03/22 13:14 Temperature 98.1 F Temperature Source Temporal Pulse Rate 105 H Respiratory Rate 16 Respiratory Effort Normal Non-Labored Respiratory Pattern Normal Blood Pressure 170/112 H Blood Pressure Mean 131 Pulse Ox 97 Oxygen Delivery Method Room Air Positive well nourished General Appearance ED: NAD HEENT Reports moist mucous membranes Negative for trauma Eyes EOMs intact bilaterally Resp normal respiratory effort and clear to auscultation bilaterally Cardio regular rate and regular rhythm Neuro oriented x3, CN's II-XII intact bilaterally and no sensory deficits noted Sensorium / Orientation: alert Motor Exam: strength 5/5 throughout Psych mental status grossly normal Skin no rashes or lesions noted MDM MDM MDM Narrative Medical decision making narrative: Case discussed with Dr. Wade who ordered the follow-up lab work today. It was reported not to retest the patient's TSH as this is known to be abnormal. Apparently they are delaying starting the patient on thyroid medication. Calcium is elevated over 14. Dr. Wade requested IV fluids and the patient can be discharged home. He will discontinue his calcitriol. He will continue his calcium carbonate. He is discharged home in stable condition. Impression: 1. History of thyroid carcinoma status post thyroidectomy 2. TSH 3. Hypercalcemia Lab Data Attestation: I reviewed the patient's lab results. Discharge Plan Triage Chief Complaint: Abn Labs ED Provider: Cesario Betts Dx/Rx/DC Orders Prescriptions: No Action guaifenesin [Mucinex] 600 mg tablet extended release 12hr 600 mg PO Q12H PRN (Reason: Congestion) RF: 0 loratadine [Claritin] 10 mg tablet 10 mg PO DAILY PRN (Reason: seasonal allergies) RF: 0 calcitriol 0.25 mcg Capsule 0.5 mcg PO DAILY Qty: 14 RF: 1 calcium carbonate-vitamin D3 [Oyster Shell Calcium-Vit D3] 500 mg-5 mcg (200 unit) Tablet 2 tab PO TIDCM 30 Days Qty: 180 RF: 0 ondansetron 4 mg tablet,disintegrating 4 mg PO Q6H PRN (Reason: nausea and vomiting) 7 Days Qty: 21 RF: 0 levothyroxine 112 mcg capsule 112 mcg PO DAILY Qty: 30 RF: 1 Hold Instructions: JACOB Primary Care Provider: Miguel Angel Rich
[2022-01-03 13:24] LABS: Absolute Lymphocyte Count 2.05 X10^3/uL (0.83-4.51); Absolute Neutrophil Count 4.7 X10^3/uL (2.0-7.7); Basophil# 0.08 X10^3/uL; Basophil% 1.1 % (0-1); Eosinophil# 0.08 X10^3/uL; Eosinophils% 1.1 % (0-5); Hematocrit 49.6 % (40-54); Hemoglobin 17.1 g/dL (13.0-16.5); Lymphocyte # 2.05 X10^3/ul (0.83-4.51); Lymphocyte % 27.4 % (19-41); Mean Corp Hgb Conc 34.5 g/dL (32-36); Mean Corpuscular Hgb 30.6 pg (27.0-32.0); Mean Corpuscular Volume 88.7 fL (80-94); Mean Platelet Vol. 10.6 fl (6.2-12.0); Monocyte# 0.59 X10^3/uL; Monocyte% 7.9 % (0-10); NRBC Flagged by Analyzer 0 % (0-5); Neutrophil # 4.66 X10^3/uL (2.7-7.7); Neutrophil % 62.2 % (47-70); Platelet Count 339 K/mm3 (150-450); RBC Distribution Width SD 38.8 fl (35.1-43.9); Red Blood Count 5.59 M/mm3 (4.6-6.2); White Blood Count 7.5 K/mm3 (4.4-11.0)
[2022-01-03 13:40] LABS: AST(SGOT) 26 U/L (15-37); Alanine Aminotransfer ALT/SGPT 39 U/L (16-61); Albumin, Serum 4.8 g/dL (3.2-5.0); Alkaline Phosphatase 88 U/L (45-117); Anion Gap 7 (5-15); BUN 11 mg/dL (7-18); BUN/Creat Ratio 10.6 RATIO (10-20); Calcium,Total 15.2 mg/dL (8.5-10.1); Chloride 95 mmol/L (98-107); Creatinine, Serum 1.04 mg/dL (0.70-1.30); EST Glomerular Filtration Rate 93 mL/min (>60); Est Glom Filt Rate - Afr Amer 112 mL/min (>60); Estimated Creatinine Clearance 84.58 ml/min; Globulin 4.8 g/dL (2.2-4.2); Glucose 118 mg/dL (74-106); Potassium 3.2 mmol/L (3.5-5.1); Protein, Total 9.6 g/dL (6.4-8.2); Sodium Level 137 mmol/L (136-145)
[2022-01-03] MEDS: 0.9% Normal Saline 1,000 ML 1000 ML IV (14:03)
[2022-01-03 14:37] VITALS: BP 158/103; PULSE 93; RESP 18; O2SAT 96
[2022-01-03 15:00] VITALS: RESP 18
[2022-01-03] MEDS: Potassium Chloride Oral Tablet 20 MEQ 40 MEQ PO (15:13)
== END 2022-01-03 15:21 | disposition home or self-care (01) ==
PROVIDERS: Emergency Provider Student in an Organized Health Care Education/Training Program; PCP Family Medicine; Visit Provider Student in an Organized Health Care Education/Training Program
DX: E83.52 Hypercalcemia (principal); C73 Malignant neoplasm of thyroid gland; Z80.8 Family history of malignant neoplasm of other organs or systems; E78.00 Pure hypercholesterolemia, unspecified; Z86.16 Personal history of COVID-19; K21.9 Gastro-esophageal reflux disease without esophagitis
CPT/HCPCS: 36415; 80053; 82310; 84432; 84439; 84443; 85025; 86800; 93005; 96360; 96361; 99283; J7030; A4216

== ENCOUNTER → 2022-01-03 | Outpatient (CLI) | payer MEDICAID, SELFPAY ==
[2022-01-03 10:44] LABS: T4 Free Direct 0.59 ng/dL (0.76-1.46)
[2022-01-03 11:09] LABS: Calcium,Total 14.8 mg/dL (8.5-10.1)
[2022-01-05 13:17] LABS: Anti-Thyroglobulin AB < 1.0 IU/mL (0.0-0.9); Thyroglobulin, Serum Qt. 32.8 ng/mL (1.4-29.2)
== END | disposition home or self-care (01) ==
LOC: LAB 08:53
PROVIDERS: Surgery; PCP Family Medicine; Visit Provider Internal Medicine Endocrinology, Diabetes & Metabolism
DX: C73 Malignant neoplasm of thyroid gland (principal); E89.0 Postprocedural hypothyroidism
CPT/HCPCS: 84439; 82310; 84432; 84443; 86800; 36415

== ENCOUNTER → 2022-01-10 | Outpatient (CLI) | payer MEDICAID, SELFPAY ==
[2022-01-10 12:46] LABS: Calcium,Total 6.7 mg/dL (8.5-10.1)
[2022-01-10 12:59] LABS: PTHIN 8.9 pg/mL (18.4-80.1)
== END | disposition home or self-care (01) ==
LOC: LAB 11:39
PROVIDERS: PCP Family Medicine; Referring Provider Surgery; Visit Provider Surgery
DX: E89.2 Postprocedural hypoparathyroidism (principal)
CPT/HCPCS: 36415; 82310; 83970

== ENCOUNTER → 2022-01-21 | Outpatient (CLI) | payer MEDICAID, SELFPAY ==
--- NOTE | 2022-01-21 09:43 | NM_ITS ---
EXAM: NM WHOLE BODY THYROID CANCER METASTASIS IMAGING STUDY CLINICAL INDICATION: total thyroidectomy d/t papillary thyroidcarcinoma TECHNIQUE: Anterior and posterior 48 hour delayed images of the body (legs not included) were obtained following the intravenous administration of Tc99m MDP. This report was created using [facility] report [employer] technology. COMPARISON: None. FINDINGS: Expected activity in the stomach and urinary bladder. 2 foci overlying the right chest/shoulder on anterior comment image not confirmed on whole body, likely artifact. Isotope activity in the thyroid bed compatible with residual thyroid tissue. NM/Thyroid Whole Body I-131 Scan IMPRESSION: Isotope activity in the thyroid bed compatible with residual thyroid tissue. No evidence of metastasis. Electronically Signed: Aditya Ellington MD ([place]) at 11:09 EDT ,
[2022-01-21 10:57] LABS: PTHIN 7.1 pg/mL (18.4-80.1)
[2022-01-21 11:09] LABS: Calcium,Total 9.4 mg/dL (8.5-10.1)
== END | disposition home or self-care (01) ==
PROVIDERS: Surgery; PCP Family Medicine; Referring Provider Nurse Practitioner Family; Visit Provider Nurse Practitioner Family
DX: C73 Malignant neoplasm of thyroid gland (principal); E89.2 Postprocedural hypoparathyroidism; E89.0 Postprocedural hypothyroidism
CPT/HCPCS: 36415; 78018; 82310; 83970; A9528

== ENCOUNTER → 2022-01-25 | Outpatient (CLI) | payer MEDICAID, SELFPAY ==
--- NOTE | 2022-01-25 10:25 | NM_ITS ---
STUDY: REASON FOR EXAM: Male, 26 years old. Thyroidectomy d/t papillary thyroid carcinoma -- 100 MCI TECHNIQUE: The patient ingested 104.2 mCi of IODINE-131. Patient has a history of prior thyroidectomy due to papillary thyroid carcinoma. COMPARISON: Comparison is made with prior body thyroid scan dated 01/23/2022. NM/Therapy I-131 IMPRESSION: The patient ingested 104.2 mCi of IODINE-131. Electronically Signed: Arcenio Tapia MD at 8:11 EDT ,
== END | disposition home or self-care (01) ==
LOC: NM 10:23
PROVIDERS: PCP Family Medicine; Referring Provider Nurse Practitioner Family; Visit Provider Nurse Practitioner Family
DX: C73 Malignant neoplasm of thyroid gland (principal); E89.2 Postprocedural hypoparathyroidism; E89.0 Postprocedural hypothyroidism
CPT/HCPCS: 79005; A9517

== ENCOUNTER → 2022-03-12 | Outpatient (CLI) | payer MEDICAID, SELFPAY ==
[2022-03-12 13:52] LABS: Anion Gap 6 (5-15); BUN 10 mg/dL (7-18); BUN/Creat Ratio 13.7 RATIO (10-20); Calcium,Total 7.7 mg/dL (8.5-10.1); Chloride 104 mmol/L (98-107); Creatinine, Serum 0.73 mg/dL (0.70-1.30); EST Glomerular Filtration Rate 140 mL/min (>60); Est Glom Filt Rate - Afr Amer 169 mL/min (>60); Glucose 80 mg/dL (74-106); Potassium 3.2 mmol/L (3.5-5.1); Sodium Level 141 mmol/L (136-145); T4 Free Direct 1.26 ng/dL (0.76-1.46); Thyroid Stim Hormone (TSH) 1.66 uIU/mL (0.358-3.74)
[2022-03-15 10:28] LABS: Anti-Thyroglobulin AB < 1.0 IU/mL (0.0-0.9); Thyroglobulin, Serum Qt. 4.3 ng/mL (1.4-29.2)
== END | disposition home or self-care (01) ==
LOC: LAB 12:31
PROVIDERS: PCP Family Medicine; Referring Provider Internal Medicine Endocrinology, Diabetes & Metabolism; Visit Provider Internal Medicine Endocrinology, Diabetes & Metabolism
DX: E89.0 Postprocedural hypothyroidism (principal); E89.2 Postprocedural hypoparathyroidism; C73 Malignant neoplasm of thyroid gland
CPT/HCPCS: 36415; 80048; 84432; 84439; 84443; 86800

== ENCOUNTER → 2022-04-05 | Outpatient (CLI) | payer MEDICAID, SELFPAY ==
[2022-04-05 17:34] LABS: ALB/GLOB Ratio 1.1 RATIO (0.9-2.4); AST(SGOT) 20 U/L (15-37); Alanine Aminotransfer ALT/SGPT 34 U/L (16-61); Albumin, Serum 3.9 g/dL (3.2-5.0); Alkaline Phosphatase 58 U/L (45-117); Anion Gap 6 (5-15); BUN 13 mg/dL (7-18); BUN/Creat Ratio 17.1 RATIO (10-20); Calcium,Total 8.2 mg/dL (8.5-10.1); Chloride 105 mmol/L (98-107); Creatinine, Serum 0.76 mg/dL (0.70-1.30); EST Glomerular Filtration Rate 133 mL/min (>60); Est Glom Filt Rate - Afr Amer 161 mL/min (>60); Globulin 3.7 g/dL (2.2-4.2); Glucose 87 mg/dL (74-106); Potassium 3.2 mmol/L (3.5-5.1); Protein, Total 7.6 g/dL (6.4-8.2); Sodium Level 141 mmol/L (136-145); T4 Free Direct 0.97 ng/dL (0.76-1.46); Thyroid Stim Hormone (TSH) 2.53 uIU/mL (0.358-3.74)
[2022-04-08 08:14] LABS: PTHIN 7.9 pg/mL (18.4-80.1)
== END | disposition home or self-care (01) ==
LOC: LAB 16:15
PROVIDERS: Surgery; PCP Family Medicine; Referring Provider Internal Medicine Endocrinology, Diabetes & Metabolism; Visit Provider Internal Medicine Endocrinology, Diabetes & Metabolism
DX: E89.0 Postprocedural hypothyroidism (principal); E89.2 Postprocedural hypoparathyroidism
CPT/HCPCS: 36415; 80053; 83970; 84439; 84443

== ENCOUNTER → 2022-04-15 | Outpatient (CLI) | payer MEDICAID, SELFPAY ==
[2022-04-15 16:16] LABS: Anion Gap 9 (5-15); BUN 13 mg/dL (7-18); BUN/Creat Ratio 12.7 RATIO (10-20); Chloride 97 mmol/L (98-107); Creatinine, Serum 1.02 mg/dL (0.70-1.30); Glucose 69 mg/dL (74-106); Potassium 3.8 mmol/L (3.5-5.1); Sodium Level 138 mmol/L (136-145)
== END | disposition home or self-care (01) ==
LOC: LAB 11:56
PROVIDERS: PCP Family Medicine; Visit Provider Internal Medicine Endocrinology, Diabetes & Metabolism
DX: E89.2 Postprocedural hypoparathyroidism (principal)
CPT/HCPCS: 36415; 80047

== ENCOUNTER → 2022-04-30 | Outpatient (CLI) | payer MEDICAID, SELFPAY ==
[2022-04-30 16:36] LABS: AST(SGOT) 20 U/L (15-37); Alanine Aminotransfer ALT/SGPT 37 U/L (16-61); Albumin, Serum 4.4 g/dL (3.2-5.0); Alkaline Phosphatase 61 U/L (45-117); Anion Gap 8 (5-15); BUN 9 mg/dL (7-18); BUN/Creat Ratio 11.7 RATIO (10-20); Calcium,Total 9.7 mg/dL (8.5-10.1); Chloride 101 mmol/L (98-107); Creatinine, Serum 0.77 mg/dL (0.70-1.30); EST Glomerular Filtration Rate 131 mL/min (>60); Est Glom Filt Rate - Afr Amer 159 mL/min (>60); Globulin 4.3 g/dL (2.2-4.2); Glucose 77 mg/dL (74-106); Potassium 3.3 mmol/L (3.5-5.1); Protein, Total 8.7 g/dL (6.4-8.2); Sodium Level 141 mmol/L (136-145)
== END | disposition home or self-care (01) ==
LOC: LAB 15:37
PROVIDERS: PCP Family Medicine; Referring Provider Nurse Practitioner Family; Visit Provider Nurse Practitioner Family
DX: E89.2 Postprocedural hypoparathyroidism (principal)
CPT/HCPCS: 36415; 80053; 82330

== ENCOUNTER → 2022-05-15 | Outpatient (CLI) | payer MEDICAID, SELFPAY ==
[2022-05-15 13:03] LABS: Urine Chloride 127 mmol/L (Not Establ.)
[2022-05-15 13:24] LABS: AST(SGOT) 31 U/L (15-37); Alanine Aminotransfer ALT/SGPT 66 U/L (16-61); Albumin, Serum 4.2 g/dL (3.2-5.0); Alkaline Phosphatase 57 U/L (45-117); Anion Gap 8 (5-15); BUN 11 mg/dL (7-18); BUN/Creat Ratio 11.5 RATIO (10-20); Calcium,Total 10.4 mg/dL (8.5-10.1); Chloride 100 mmol/L (98-107); Creatinine, Serum 0.95 mg/dL (0.70-1.30); EST Glomerular Filtration Rate 102 mL/min (>60); Est Glom Filt Rate - Afr Amer 124 mL/min (>60); Globulin 4.3 g/dL (2.2-4.2); Glucose 116 mg/dL (74-106); Potassium 3.6 mmol/L (3.5-5.1); Protein, Total 8.5 g/dL (6.4-8.2); Sodium Level 138 mmol/L (136-145); Thyroid Stim Hormone (TSH) 7.69 uIU/mL (0.358-3.74)
== END | disposition home or self-care (01) ==
LOC: LAB 12:03
PROVIDERS: PCP Family Medicine; Visit Provider Internal Medicine Endocrinology, Diabetes & Metabolism
DX: E89.0 Postprocedural hypothyroidism (principal); E87.6 Hypokalemia
CPT/HCPCS: 36415; 80053; 82436; 82570; 84133; 84443

== ENCOUNTER → 2022-06-18 | Outpatient (CLI) | payer MEDICAID, SELFPAY ==
[2022-06-18 14:38] LABS: ALB/GLOB Ratio 0.9 RATIO (0.9-2.4); AST(SGOT) 22 U/L (15-37); Alanine Aminotransfer ALT/SGPT 43 U/L (16-61); Albumin, Serum 4.2 g/dL (3.2-5.0); Alkaline Phosphatase 65 U/L (45-117); Anion Gap 4 (5-15); BUN 10 mg/dL (7-18); BUN/Creat Ratio 10.8 RATIO (10-20); Calcium,Total 10.1 mg/dL (8.5-10.1); Chloride 101 mmol/L (98-107); Creatinine, Serum 0.93 mg/dL (0.70-1.30); EST Glomerular Filtration Rate 106 mL/min (>60); Est Glom Filt Rate - Afr Amer 128 mL/min (>60); Globulin 4.6 g/dL (2.2-4.2); Glucose 106 mg/dL (74-106); Potassium 3.2 mmol/L (3.5-5.1); Protein, Total 8.8 g/dL (6.4-8.2); Sodium Level 139 mmol/L (136-145); T4 Free Direct 1.33 ng/dL (0.76-1.46); Thyroid Stim Hormone (TSH) 1.71 uIU/mL (0.358-3.74)
== END | disposition home or self-care (01) ==
LOC: LAB 12:36
PROVIDERS: PCP Family Medicine; Referring Provider Internal Medicine Endocrinology, Diabetes & Metabolism; Visit Provider Internal Medicine Endocrinology, Diabetes & Metabolism
DX: E87.6 Hypokalemia (principal); E89.2 Postprocedural hypoparathyroidism; E89.0 Postprocedural hypothyroidism
CPT/HCPCS: 36415; 80053; 84439; 84443

== ENCOUNTER → 2022-06-26 | Outpatient (CLI) | payer MEDICAID, SELFPAY ==
--- NOTE | 2022-06-26 12:35 | US_ITS ---
STUDY: THYROID ULTRASOUND REASON FOR EXAM: Male, 27 years old. Thyroidectomy TECHNIQUE: Ultrasound evaluation of the thyroid was performed with real-time and static ponce-scale imaging. COMPARISON: None. FINDINGS: The patient is status post total thyroidectomy. There is a 1.1 cm x 0.8 cm x 0.4 cm right cervical lymph node. US/Thyroid IMPRESSION: Status post total thyroidectomy. 1.1 cm x 0.8 cm x 0.4 cm right cervical lymph node. Electronically Signed: Arcenio Tapia MD at 14:23 EST ,
[2022-06-26 13:15] LABS: Anion Gap 6 (5-15); BUN 12 mg/dL (7-18); BUN/Creat Ratio 16.3 RATIO (10-20); Chloride 104 mmol/L (98-107); Creatinine, Serum 0.74 mg/dL (0.70-1.30); EST Glomerular Filtration Rate 137 mL/min (>60); Est Glom Filt Rate - Afr Amer 166 mL/min (>60); Glucose 88 mg/dL (74-106); Potassium 3.6 mmol/L (3.5-5.1); Sodium Level 141 mmol/L (136-145)
== END | disposition home or self-care (01) ==
LOC: US 12:23
PROVIDERS: Internal Medicine Endocrinology, Diabetes & Metabolism; PCP Family Medicine; Referring Provider Surgery; Visit Provider Surgery
DX: E89.2 Postprocedural hypoparathyroidism (principal); C73 Malignant neoplasm of thyroid gland; E89.0 Postprocedural hypothyroidism; E87.6 Hypokalemia
CPT/HCPCS: 36415; 76536; 80048

== ENCOUNTER → 2022-08-06 | Outpatient (CLI) | payer MEDICAID, SELFPAY ==
[2022-08-06 11:17] LABS: Vitamin D,25 Hydroxy 36.5 ng/mL
[2022-08-06 11:25] LABS: AST(SGOT) 28 U/L (15-37); Alanine Aminotransfer ALT/SGPT 59 U/L (16-61); Albumin, Serum 4.6 g/dL (3.2-5.0); Alkaline Phosphatase 61 U/L (45-117); Anion Gap 5 (5-15); BUN 9 mg/dL (7-18); BUN/Creat Ratio 10.5 RATIO (10-20); Chloride 100 mmol/L (98-107); Creatinine, Serum 0.86 mg/dL (0.70-1.30); EST Glomerular Filtration Rate 116 mL/min (>60); Est Glom Filt Rate - Afr Amer 140 mL/min (>60); Globulin 4.5 g/dL (2.2-4.2); Glucose 86 mg/dL (74-106); Potassium 3.6 mmol/L (3.5-5.1); Protein, Total 9.1 g/dL (6.4-8.2); Sodium Level 136 mmol/L (136-145); T4 Free Direct 1.51 ng/dL (0.76-1.46)
[2022-08-06 11:30] LABS: PTHIN < 6.3 pg/mL (18.4-80.1)
[2022-08-08 21:57] LABS: Anti-Thyroglobulin AB < 1.0 IU/mL (0.0-0.9); Thyroglobulin, Serum Qt. 3.4 ng/mL (1.4-29.2)
[2022-08-09 16:08] LABS: Albumin 4.5 g/dL (2.9-4.4); Alpha-1-Globulins 0.3 g/dL (0.0-0.4); Alpha-2-Globulins 0.9 g/dL (0.4-1.0); Gamma Globulin 1.4 g/dL (0.4-1.8); Immunoglobulin A 427 mg/dL (90-386); Immunoglobulin G 1418 mg/dL (603-1613); Immunoglobulin M 95 mg/dL (20-172); PROEL- TOTAL PROTEIN 8.3 g/dL (6.0-8.5)
== END | disposition home or self-care (01) ==
LOC: LAB 10:26
PROVIDERS: Surgery; PCP Family Medicine; Referring Provider Internal Medicine Endocrinology, Diabetes & Metabolism; Visit Provider Internal Medicine Endocrinology, Diabetes & Metabolism
DX: E87.6 Hypokalemia (principal); E89.2 Postprocedural hypoparathyroidism; C73 Malignant neoplasm of thyroid gland; E89.0 Postprocedural hypothyroidism; E88.09 Other disorders of plasma-protein metabolism, not elsewhere classified
CPT/HCPCS: 36415; 80053; 82306; 82784; 83970; 84165; 84432; 84439; 84443; 86334; 86800

== ENCOUNTER 2022-10-17 18:43 | Emergency (ER) | payer MEDICAID, SELFPAY ==
[2022-10-17 18:44] VITALS: BP 156/99; PULSE 111; RESP 16; TEMP 37; O2SAT 97; BMI 26.7
--- NOTE | 2022-10-17 20:08 | EDS_ITS ---
HPI <ENRIQUETA Cervantes - Last Filed: 10/17/22 21:08> History of Present Illness Chief Complaint: Abn Labs Narrative Narrative: Is a 27-year-old male with history of thyroidectomy secondary to cancer, hypoparathyroidism, Jorge Cooper syndrome, mentally delayed who presents to the emergency department for elevated calcium. Patient has been to the emergency department for this before. Patient has bouts of nausea and vomiting, his grandmother states that this syndrome makes him produce too much calcium and it can be dangerous. The patient had laboratory studies done today and the calcium was 12.8. He has been as high as 14. When this happens, the patient is more lethargic, has body aches, and needs IV fluids. The patient's machine i trimmer did contact the ER for this treatment today. Per the patient, he has had nausea and vomiting for 4 days, only able to keep water down. He did have tunafish today and was able to keep that down. 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 RLS (restless legs syndrome) Jorge Barratt syndrome Home Medications guaifenesin 600 mg tablet, extended release 12 hr (Mucinex) 600 mg PO Q12H PRN Congestion 11/29/21 [History Last Taken Unknown] loratadine 10 mg tablet (Claritin) 10 mg PO DAILY PRN seasonal allergies 11/29/21 [History Last Taken Unknown] calcium carbonate 500 mg-vitamin D3 5 mcg (200 unit) tablet (Oyster Shell Calcium-Vitamin D3) 2 tab PO DAILY 30 days #60 tabs 01/11/22 [Rx Last Taken Unknown] levothyroxine 112 mcg tablet 112 mcg PO .qd, 2 on Sundays #30 tabs 05/16/22 [Rx Last Taken Unknown] potassium chloride 20 mEq tablet,extended release 20 meq PO BID #60 tabs 07/16/22 [Rx Last Taken Unknown] spironolactone 25 mg tablet 25 mg PO DAILY #30 tabs 10/07/22 [Rx Last Taken Unknown] ondansetron 4 mg disintegrating tablet 8 mg PO Q8H PRN nausea and vomiting #16 tabs 10/17/22 [Rx Last Taken Unknown] Allergy/AdvReac Type Severity Reaction Status Date / Time No Known Allergies Allergy Verified 08/27/22 09:35 Family History Grandmother Thyroid cancer His grandmother states her extended family has a history of thyroid cancer including her sister and some cousins. Surgical History History of angioplasty History of dental surgery History of hernia surgery History of repair of coarctation of aorta History of total thyroidectomy Social History Smoking Status: Never smoker alcohol intake: never substance use type: does not use ROS <ENRIQUETA Cervantes - Last Filed: 10/17/22 21:08> ROS ED ROS Narrative Constitutional: Negative for fever, chills, weight loss, weakness Eyes: Negative for vision loss, vision change, double vision ENT: Negative for any sore throat, ear pain, congestion Cardiovascular: Negative for any chest pain, tightness, palpitations Respiratory: Negative for any cough, sputum production, hemoptysis, dyspnea, dyspnea on exertion, orthopnea Gastrointestinal: Negative for any abdominal pain, diarrhea, constipation, blood in stool, blood in vomit. Positive for nausea and vomiting : Negative for any urinary frequency, dysuria, retention, blood in urine Muscle skeletal: Negative for any muscle joint pain, stiffness, arthralgias, neck pain, back pain. Positive for myalgias Neurological: Negative for any headache, syncope, numbness or tingling, dizziness Skin: Negative for any rashes, lumps, itching, abrasions, lacerations Psychiatric: Negative for any depression, anxiety, stress, suicidal ideation, homicidal ideation Hematologic: Negative for any easy bruising, excessive bruising, easy bleeding Allergies: Negative for any eczema, hives, rash EXAM <ENRIQUETA Cervantes - Last Filed: 10/17/22 21:08> Physical Exam Narrative Exam Narrative: Vital signs reviewed. Patient alert and orient x4. Patient slightly tachycardic HEET: Head normocephalic atraumatic, TMs clear bilaterally. Posterior pharynx is clear, moist mucous membranes. Nares clear bilaterally. Neck: Supple with no lymphadenopathy or tenderness. No signs of meningismus, negative jolt sign. Cardiac: Tachycardic rate no murmurs gallops or rubs, equal peripheral pulses bilaterally. Respiratory: Lungs clear to auscultation bilaterally. No chest tenderness. Abdomen: Soft, nontender, nondistended. No abdominal bruit or pulsatile masses. No hepatosplenomegaly. Hypoactive bowel sounds Extremities: No peripheral edema, no signs of gross trauma or deformity. Active full range of motion of all extremities. Neuro: Cranial nerves II through XII intact, no focal neurological deficits. Skin: Clean dry and intact with no rash, purpura, petechiae, vesicles or pustules. Backs/flank: No CVA tenderness, no midline spinal tenderness, no deformity. Psych: Normal mood and affect. No SI, HI or acute psychosis. Const Vital Signs: 10/17/22 18:44 10/17/22 20:12 10/17/22 20:12 Temperature 98.6 F Temperature Source Temporal Pulse Rate 111 H 112 H Respiratory Rate 16 18 Respiratory Effort Normal Non-Labored Respiratory Pattern Normal Blood Pressure 156/99 H 149/96 H Blood Pressure Mean 118 113 Pulse Ox 97 98 Oxygen Delivery Method Room Air Room Air <Dr. Roberto Juarez MD - Last Filed: 10/17/22 22:23> Physical Exam Const Vital Signs: 10/17/22 18:44 10/17/22 20:12 10/17/22 20:12 Temperature 98.6 F Temperature Source Temporal Pulse Rate 111 H 112 H Respiratory Rate 16 18 Respiratory Effort Normal Non-Labored Respiratory Pattern Normal Blood Pressure 156/99 H 149/96 H Blood Pressure Mean 118 113 Pulse Ox 97 98 Oxygen Delivery Method Room Air Room Air [facility] <ENRIQUETA Cervantes - Last Filed: 10/17/22 21:08> [facility] Lab Data Labs: Laboratory Results - last 24 hr 10/17/22 10/17/22 20:30 20:30 WBC 7.1 RBC 5.23 Hgb 16.1 Hct 45.6 MCV 87.2 MCH 30.8 MCHC 35.3 RDW Std Deviation 36.2 RDW Coeff of Marry 11.3 L Plt Count 286 MPV 10.0 Immature Gran % (Auto) 0.400 Neut % (Auto) 59.7 Lymph % (Auto) 27.6 Mayes % (Auto) 10.6 H Eos % (Auto) 1.1 Baso % (Auto) 0.6 Absolute Neuts (auto) 4.2 Absolute Lymphs (auto) 1.95 Nucleated RBC % 0 Sodium 132 L Potassium 3.3 L Chloride 92 L Carbon Dioxide 31.0 Anion Gap 9 BUN 30 H Creatinine 1.70 H Estim Creat Clear Calc 55.62 Est GFR (MDRD) Af Amer 63 Est GFR (MDRD) Non-Af 52 L BUN/Creatinine Ratio 17.6 Glucose 101 Calcium 12.0 H Total Bilirubin 0.80 AST 30 ALT 50 Alkaline Phosphatase 53 Total Protein 8.7 H Albumin 4.4 Globulin 4.3 H Albumin/Globulin Ratio 1.0 Lipase 131 Treatment and Re-Evaluation :: Patient appears alert, oriented, patient presents to the emergency department for elevated calcium level as well as nausea and vomiting. Patient received basic laboratory eval as well as a COVID flu swab per her request. Patient will receive 2 L of normal saline. IV was established, patient's laboratory studies show a normal CBC, lipase and chemistry panel is not resulted. This plan is for the patient received 2 L of normal saline, have a repeat calcium level as long as it is within normal limits, the patient be able to discharge home. Patient appears noninfectious. <Dr. Roberto Juarez MD - Last Filed: 10/17/22 22:23> [facility] MDM Narrative Medical decision making narrative: Seen and evaluated independently and in conjunction with nurse practitioner. Agree with notes above unless documented otherwise. Patient with 3-4 days of vomiting after being around other family members who had a stomach bug. History of hypercalcemia. Has had this happen before where his calcium levels went up during an episode like this, and that is the case this time. Sent in by Dr. Lombardi who I discussed with. Patient with benign abdomen nontender. Decreased activity at home prior to coming here which is what prompted family to become concerned and prompt further evaluation. Patient is otherwise well-appearing with mild tachycardia. Labs prior to giving him fluids show a slightly low potassium at 3.3 and a calcium of 12.0, little less than it was before, 12.9. Repeating this after the fluids and Zofran and anticipating discharge since patient is doing much better. Lab Data Attestation: I reviewed the patient's lab results. Labs: Laboratory Results - last 24 hr 10/17/22 10/17/22 20:30 20:30 WBC 7.1 RBC 5.23 Hgb 16.1 Hct 45.6 MCV 87.2 MCH 30.8 MCHC 35.3 RDW Std Deviation 36.2 RDW Coeff of Marry 11.3 L Plt Count 286 MPV 10.0 Immature Gran % (Auto) 0.400 Neut % (Auto) 59.7 Lymph % (Auto) 27.6 Mayes % (Auto) 10.6 H Eos % (Auto) 1.1 Baso % (Auto) 0.6 Absolute Neuts (auto) 4.2 Absolute Lymphs (auto) 1.95 Nucleated RBC % 0 Sodium 132 L Potassium 3.3 L Chloride 92 L Carbon Dioxide 31.0 Anion Gap 9 BUN 30 H Creatinine 1.70 H Estim Creat Clear Calc 55.62 Est GFR (MDRD) Af Amer 63 Est GFR (MDRD) Non-Af 52 L BUN/Creatinine Ratio 17.6 Glucose 101 Calcium 12.0 H Total Bilirubin 0.80 AST 30 ALT 50 Alkaline Phosphatase 53 Total Protein 8.7 H Albumin 4.4 Globulin 4.3 H Albumin/Globulin Ratio 1.0 Lipase 131 Management Discussion w/another healthcare provider: Shank Paperer (Endocrinology Dr. Lombardi) Discharge Plan Triage Chief Complaint: Abn Labs ED Midlevel Provider: Emmanuel Moore ED Provider: Roberto Juarez Dx/Rx/DC Orders Clinical Impression: Vomiting, Hypercalcemia Instructions: Hypercalcemia Dc Prescriptions: Continued guaifenesin [Mucinex] 600 mg tablet extended release 12hr 600 mg PO Q12H PRN (Reason: Congestion) loratadine [Claritin] 10 mg tablet 10 mg PO DAILY PRN (Reason: seasonal allergies) calcium carbonate-vitamin D3 [Oyster Shell Calcium-Vit D3] 500 mg-5 mcg (200 unit) tablet 2 tab PO DAILY 30 Days Qty: 60 0RF levothyroxine 112 mcg tablet 112 mcg PO .qd, 2 on Sundays Qty: 30 11RF potassium chloride 20 mEq tablet extended release 20 meq PO BID Qty: 60 5RF spironolactone 25 mg tablet 25 mg PO DAILY Qty: 30 2RF Changed ondansetron 4 mg tablet,disintegrating 8 mg PO Q8H PRN (Reason: nausea and vomiting) Qty: 16 0RF Primary Care Provider: Miguel Angel Rich Referrals: Miguel Angel Rich DO [Primary Care Provider] - Edi Lombardi MD [Med Staff - Courtesy Staff] - 1-2 Days if not improving Disposition Disposition: Home, Self Care
[2022-10-17 20:12] VITALS: BP 149/96; PULSE 112; RESP 18; O2SAT 98
[2022-10-17] MEDS: 0.9% Normal Saline 1,000 ML 1000 ML IV (20:39)
[2022-10-17] MEDS: Ondansetron 4 MG/2 ML Vial IV (20:39)
[2022-10-17 20:44] LABS: Absolute Lymphocyte Count 1.95 X10^3/uL (0.83-4.51); Absolute Neutrophil Count 4.2 X10^3/uL (2.0-7.7); Basophil# 0.04 X10^3/uL; Basophil% 0.6 % (0-1); Eosinophil# 0.08 X10^3/uL; Eosinophils% 1.1 % (0-5); Hematocrit 45.6 % (40-54); Hemoglobin 16.1 g/dL (13.0-16.5); Lymphocyte # 1.95 X10^3/ul (0.83-4.51); Lymphocyte % 27.6 % (19-41); Mean Corp Hgb Conc 35.3 g/dL (32-36); Mean Corpuscular Hgb 30.8 pg (27.0-32.0); Mean Corpuscular Volume 87.2 fL (80-94); Monocyte# 0.75 X10^3/uL; Monocyte% 10.6 % (0-10); NRBC Flagged by Analyzer 0 % (0-5); Neutrophil # 4.21 X10^3/uL (2.7-7.7); Neutrophil % 59.7 % (47-70); Platelet Count 286 K/mm3 (150-450); RBC Distribution Width CV 11.3 % (11.6-14.6); RBC Distribution Width SD 36.2 fl (35.1-43.9); Red Blood Count 5.23 M/mm3 (4.6-6.2); White Blood Count 7.1 K/mm3 (4.4-11.0)
[2022-10-17 21:18] LABS: AST(SGOT) 30 U/L (15-37); Alanine Aminotransfer ALT/SGPT 50 U/L (16-61); Albumin, Serum 4.4 g/dL (3.2-5.0); Alkaline Phosphatase 53 U/L (45-117); Anion Gap 9 (5-15); BUN 30 mg/dL (7-18); BUN/Creat Ratio 17.6 RATIO (10-20); Chloride 92 mmol/L (98-107); EST Glomerular Filtration Rate 52 mL/min (>60); Est Glom Filt Rate - Afr Amer 63 mL/min (>60); Estimated Creatinine Clearance 55.62 ml/min; Globulin 4.3 g/dL (2.2-4.2); Glucose 101 mg/dL (74-106); Lipase 131 U/L (73-393); Potassium 3.3 mmol/L (3.5-5.1); Protein, Total 8.7 g/dL (6.4-8.2); Sodium Level 132 mmol/L (136-145)
[2022-10-17] MEDS: 0.9% Normal Saline 1,000 ML 999 ML IV (21:56)
[2022-10-17 22:27] VITALS: BP 154/94; PULSE 108; RESP 18; O2SAT 97
[2022-10-17] MEDS: Potassium Chloride Oral Tablet 20 MEQ 40 MEQ PO (22:32)
[2022-10-17 23:38] VITALS: PULSE 74; RESP 15; O2SAT 99
== END 2022-10-17 23:39 | disposition home or self-care (01) ==
PROVIDERS: Nurse Practitioner; Emergency Provider Emergency Medicine; PCP Family Medicine; Visit Provider Emergency Medicine
DX: E83.52 Hypercalcemia (principal); E89.2 Postprocedural hypoparathyroidism; C73 Malignant neoplasm of thyroid gland; R11.10 Vomiting, unspecified; E78.00 Pure hypercholesterolemia, unspecified; Z20.822 Contact with and (suspected) exposure to COVID-19; E89.0 Postprocedural hypothyroidism; E87.6 Hypokalemia
CPT/HCPCS: 36415; 80053; 82310; 83690; 84432; 84439; 84443; 85025; 86800; 87428; 96361; 96374; 99284; J7030; A4216; J2405

== ENCOUNTER → 2022-10-17 | Outpatient (CLI) | payer MEDICAID, SELFPAY ==
[2022-10-17 17:54] LABS: ALB/GLOB Ratio 1.2 RATIO (0.9-2.4); AST(SGOT) 34 U/L (15-37); Alanine Aminotransfer ALT/SGPT 55 U/L (16-61); Alkaline Phosphatase 58 U/L (45-117); Anion Gap 12 (5-15); BUN 29 mg/dL (7-18); BUN/Creat Ratio 16.9 RATIO (10-20); Calcium,Total 12.9 mg/dL (8.5-10.1); Chloride 90 mmol/L (98-107); Creatinine, Serum 1.72 mg/dL (0.70-1.30); EST Glomerular Filtration Rate 52 mL/min (>60); Est Glom Filt Rate - Afr Amer 62 mL/min (>60); Globulin 4.2 g/dL (2.2-4.2); Glucose 94 mg/dL (74-106); Potassium 4.1 mmol/L (3.5-5.1); Protein, Total 9.2 g/dL (6.4-8.2); Sodium Level 132 mmol/L (136-145); T4 Free Direct 1.56 ng/dL (0.76-1.46); Thyroid Stim Hormone (TSH) 0.66 uIU/mL (0.358-3.74)
[2022-10-21 19:05] LABS: Anti-Thyroglobulin AB < 1.0 IU/mL (0.0-0.9); Thyroglobulin, Serum Qt. 1.9 ng/mL (1.4-29.2)
== END | disposition home or self-care (01) ==
LOC: LAB 15:55
PROVIDERS: PCP Family Medicine; Visit Provider Internal Medicine Endocrinology, Diabetes & Metabolism
DX: C73 Malignant neoplasm of thyroid gland (principal); E89.2 Postprocedural hypoparathyroidism; E89.0 Postprocedural hypothyroidism; E87.6 Hypokalemia
CPT/HCPCS: 86800; 80053; 84443; 84432; 36415; 84439

== ENCOUNTER → 2022-10-24 | Outpatient (CLI) | payer MEDICAID, SELFPAY ==
[2022-10-24 17:19] LABS: AST(SGOT) 23 U/L (15-37); Alanine Aminotransfer ALT/SGPT 45 U/L (16-61); Albumin, Serum 4.2 g/dL (3.2-5.0); Alkaline Phosphatase 53 U/L (45-117); Anion Gap 7 (5-15); BUN 12 mg/dL (7-18); BUN/Creat Ratio 13.5 RATIO (10-20); Calcium,Total 8.1 mg/dL (8.5-10.1); Chloride 104 mmol/L (98-107); Creatinine, Serum 0.89 mg/dL (0.70-1.30); EST Glomerular Filtration Rate 111 mL/min (>60); Est Glom Filt Rate - Afr Amer 134 mL/min (>60); Glucose 74 mg/dL (74-106); Potassium 3.6 mmol/L (3.5-5.1); Protein, Total 8.2 g/dL (6.4-8.2); Sodium Level 140 mmol/L (136-145)
== END | disposition home or self-care (01) ==
LOC: LAB 14:08
PROVIDERS: PCP Family Medicine; Visit Provider Internal Medicine Endocrinology, Diabetes & Metabolism
DX: T78.40XA Allergy, unspecified, initial encounter (principal)
CPT/HCPCS: 36415; 80053

== ENCOUNTER → 2022-11-25 | Outpatient (CLI) | payer MEDICAID, SELFPAY ==
[2022-11-25 14:06] LABS: Calcium,Total 9.2 mg/dL (8.5-10.1)
[2022-11-25 14:12] LABS: Vitamin D,25 Hydroxy 27.4 ng/mL
[2023-01-07 12:09] LABS: PTHIN 14.4 pg/mL (18.4-80.1)
[2023-01-07 12:37] LABS: Calcium,Total 9.1 mg/dL (8.5-10.1)
[2023-01-07 13:24] LABS: T4 Free Direct 1.47 ng/dL (0.76-1.46); Thyroid Stim Hormone (TSH) 0.14 uIU/mL (0.358-3.74)
== END | disposition home or self-care (01) ==
LOC: LAB 12:35
PROVIDERS: Nurse Practitioner Family; Surgery; PCP Family Medicine; Referring Provider Internal Medicine Endocrinology, Diabetes & Metabolism; Visit Provider Internal Medicine Endocrinology, Diabetes & Metabolism
DX: Q93.82 Williams syndrome (principal); E55.9 Vitamin D deficiency, unspecified
CPT/HCPCS: 36415; 82306; 82310; 82330; 83970; 84439; 84443

== ENCOUNTER → 2022-12-16 | Outpatient (CLI) | payer MEDICAID, SELFPAY ==
--- NOTE | 2022-12-16 11:44 | US_ITS ---
STUDY: THYROID ULTRASOUND REASON FOR EXAM: Male, 27 years old. Surveillance for carcinoma TECHNIQUE: Ultrasound evaluation of the thyroid was performed with real-time and static ponce-scale imaging. COMPARISON: None. FINDINGS: The patient is status post total thyroidectomy. The patient was treated with radioactive iodine. There is a 1.1 cm x 0.9 cm x 0.5 cm benign-appearing lymph node in the right cervical region. 9 mm x 5 mm x 4 mm benign-appearing lymph node. There is a 0.8 cm x 0.4 cm x 0.3 cm cystic structure in the left side of the cervical region. US/Thyroid IMPRESSION: Small bilateral benign-appearing cervical lymph nodes. 8 mm x 4 mm x 3 mm cystic structure in the left side of the cervical region. Electronically Signed: Arcenio Tapia MD at 13:30 EDT ,
[2022-12-16 13:50] LABS: AST(SGOT) 22 U/L (15-37); Alanine Aminotransfer ALT/SGPT 44 U/L (16-61); Albumin, Serum 4.3 g/dL (3.2-5.0); Alkaline Phosphatase 66 U/L (45-117); Anion Gap 8 (5-15); BUN 11 mg/dL (7-18); BUN/Creat Ratio 14.1 RATIO (10-20); Calcium,Total 9.3 mg/dL (8.5-10.1); Chloride 101 mmol/L (98-107); Creatinine, Serum 0.78 mg/dL (0.70-1.30); EST Glomerular Filtration Rate 128 mL/min (>60); Est Glom Filt Rate - Afr Amer 155 mL/min (>60); Globulin 4.3 g/dL (2.2-4.2); Glucose 94 mg/dL (74-106); Potassium 3.5 mmol/L (3.5-5.1); Protein, Total 8.6 g/dL (6.4-8.2); Sodium Level 139 mmol/L (136-145); T4 Free Direct 1.46 ng/dL (0.76-1.46); Thyroid Stim Hormone (TSH) 0.02 uIU/mL (0.358-3.74)
[2022-12-19 08:12] LABS: Anti-Thyroglobulin AB < 1.0 IU/mL (0.0-0.9); Thyroglobulin, Serum Qt. 2.6 ng/mL (1.4-29.2)
== END | disposition home or self-care (01) ==
PROVIDERS: Internal Medicine Endocrinology, Diabetes & Metabolism; PCP Family Medicine; Referring Provider Surgery; Visit Provider Surgery
DX: E89.0 Postprocedural hypothyroidism (principal); C73 Malignant neoplasm of thyroid gland
CPT/HCPCS: 36415; 76536; 80053; 84432; 84439; 84443; 86800

== ENCOUNTER → 2023-01-07 | Outpatient (CLI) | payer MEDICAID, SELFPAY | END | disposition home or self-care (01) | LOC: LAB 09:53 | PROVIDERS: PCP Family Medicine; Referring Provider Surgery; Visit Provider Surgery | DX: Z00.00 Encounter for general adult medical examination without abnormal findings (principal) ==

== ENCOUNTER → 2023-05-08 | Outpatient (CLI) | payer MEDICAID, SELFPAY ==
[2023-05-08 15:03] LABS: ALB/GLOB Ratio 1.1 RATIO (0.9-2.4); AST(SGOT) 24 U/L (15-37); Alanine Aminotransfer ALT/SGPT 52 U/L (16-61); Albumin, Serum 4.2 g/dL (3.2-5.0); Alkaline Phosphatase 76 U/L (45-117); Anion Gap 7 (5-15); BUN 13 mg/dL (7-18); BUN/Creat Ratio 15.9 RATIO (10-20); Calcium,Total 9.2 mg/dL (8.5-10.1); Chloride 103 mmol/L (98-107); Creatinine, Serum 0.82 mg/dL (0.70-1.30); EST Glomerular Filtration Rate 121 mL/min (>60); Est Glom Filt Rate - Afr Amer 146 mL/min (>60); Globulin 3.9 g/dL (2.2-4.2); Glucose 139 mg/dL (74-106); Potassium 3.3 mmol/L (3.5-5.1); Protein, Total 8.1 g/dL (6.4-8.2); Sodium Level 139 mmol/L (136-145); T4 Free Direct 1.01 ng/dL (0.76-1.46); Thyroid Stim Hormone (TSH) 1.63 uIU/mL (0.358-3.74)
[2023-05-12 18:07] LABS: Anti-Thyroglobulin AB < 1.0 IU/mL (0.0-0.9); Thyroglobulin, Serum Qt. 4.3 ng/mL (1.4-29.2)
== END | disposition home or self-care (01) ==
LOC: LAB 13:59
PROVIDERS: PCP Family Medicine; Referring Provider Internal Medicine Endocrinology, Diabetes & Metabolism; Visit Provider Internal Medicine Endocrinology, Diabetes & Metabolism
DX: C73 Malignant neoplasm of thyroid gland (principal); E89.0 Postprocedural hypothyroidism; E87.6 Hypokalemia
CPT/HCPCS: 36415; 80053; 84432; 84439; 84443; 86800

== ENCOUNTER → 2023-06-21 | Outpatient (CLI) | payer MEDICAID, SELFPAY ==
--- NOTE | 2023-06-21 10:48 | US_ITS ---
STUDY: THYROID ULTRASOUND REASON FOR EXAM: Male, 28 years old. follow up TECHNIQUE: Ultrasound evaluation of the thyroid was performed with real-time and static ponce-scale imaging. COMPARISON: 12/16/2022 FINDINGS: Status post thyroidectomy without residual thyroid tissue.. The regional lymph nodes are normal. US/Thyroid IMPRESSION: Normal ultrasound examination of the neck after thyroidectomy. Electronically Signed: Faheem Alcantara MD at 16:29 EDT ,
== END | disposition home or self-care (01) ==
LOC: US 10:48
PROVIDERS: PCP Family Medicine; Referring Provider Surgery; Visit Provider Surgery
DX: E04.1 Nontoxic single thyroid nodule (principal)
CPT/HCPCS: 76536

== ENCOUNTER → 2023-09-17 | Outpatient (CLI) | payer MEDICAID, SELFPAY ==
[2023-09-17 13:20] LABS: ALB/GLOB Ratio 0.9 RATIO (0.9-2.4); AST(SGOT) 24 U/L (15-37); Alanine Aminotransfer ALT/SGPT 40 U/L (16-61); Alkaline Phosphatase 89 U/L (45-117); Anion Gap 4 (5-15); BUN 12 mg/dL (7-18); BUN/Creat Ratio 16.6 RATIO (10-20); Calcium,Total 8.7 mg/dL (8.5-10.1); Chloride 104 mmol/L (98-107); Creatinine, Serum 0.72 mg/dL (0.70-1.30); EST Glomerular Filtration Rate 140 mL/min (>60); Est Glom Filt Rate - Afr Amer 169 mL/min (>60); Globulin 4.4 g/dL (2.2-4.2); Glucose 92 mg/dL (74-106); Potassium 3.5 mmol/L (3.5-5.1); Protein, Total 8.4 g/dL (6.4-8.2); Sodium Level 138 mmol/L (136-145); T4 Free Direct 1.07 ng/dL (0.76-1.46); Thyroid Stim Hormone (TSH) 0.94 uIU/mL (0.358-3.74)
[2023-09-19 09:10] LABS: Anti-Thyroglobulin AB < 1.0 IU/mL (0.0-0.9); Thyroglobulin, Serum Qt. 3.2 ng/mL (1.4-29.2)
== END | disposition home or self-care (01) ==
LOC: LAB 11:57
PROVIDERS: PCP Family Medicine; Referring Provider Internal Medicine Endocrinology, Diabetes & Metabolism; Visit Provider Internal Medicine Endocrinology, Diabetes & Metabolism
DX: C73 Malignant neoplasm of thyroid gland (principal); E89.0 Postprocedural hypothyroidism; E87.6 Hypokalemia
CPT/HCPCS: 36415; 80053; 84432; 84439; 84443; 86800

== ENCOUNTER → 2024-03-02 | Outpatient (CLI) | payer MEDICAID, SELFPAY ==
[2024-03-02 14:45] LABS: ALB/GLOB Ratio 0.9 RATIO (0.9-2.4); AST(SGOT) 36 U/L (15-37); Alanine Aminotransfer ALT/SGPT 61 U/L (16-61); Alkaline Phosphatase 94 U/L (45-117); Anion Gap 5 (5-15); BUN 9 mg/dL (7-18); BUN/Creat Ratio 11.1 RATIO (10-20); Chloride 100 mmol/L (98-107); Creatinine, Serum 0.81 mg/dL (0.70-1.30); EST Glomerular Filtration Rate 122 mL/min (>60); Est Glom Filt Rate - Afr Amer 147 mL/min (>60); Globulin 4.5 g/dL (2.2-4.2); Glucose 114 mg/dL (74-106); Potassium 3.4 mmol/L (3.5-5.1); Protein, Total 8.5 g/dL (6.4-8.2); Sodium Level 138 mmol/L (136-145); T4 Free Direct 0.99 ng/dL (0.76-1.46); Thyroid Stim Hormone (TSH) 5.15 uIU/mL (0.358-3.74)
[2024-03-02 15:36] LABS: Vitamin D,25 Hydroxy 28.1 ng/mL
[2024-03-05 08:12] LABS: Anti-Thyroglobulin AB < 1.0 IU/mL (0.0-0.9); Thyroglobulin, Serum Qt. 7.7 ng/mL (1.4-29.2)
== END | disposition home or self-care (01) ==
LOC: LAB 10:22
PROVIDERS: PCP Family Medicine; Referring Provider Internal Medicine Endocrinology, Diabetes & Metabolism; Visit Provider Internal Medicine Endocrinology, Diabetes & Metabolism
DX: E89.0 Postprocedural hypothyroidism (principal); C73 Malignant neoplasm of thyroid gland; E87.6 Hypokalemia; Q93.82 Williams syndrome; E55.9 Vitamin D deficiency, unspecified
CPT/HCPCS: 36415; 80053; 82306; 84432; 84439; 84443; 86800

== ENCOUNTER → 2024-03-22 | Outpatient (CLI) | payer MEDICAID, SELFPAY ==
--- NOTE | 2024-03-22 12:34 | US_ITS ---
EXAM: US SOFT TISSUES HEAD AND NECK, THYROID CLINICAL INDICATION: doubling of TG levels from 3.2 to 7.7 -- assess for abnormal lymph nodes doubling of TG levels from 3.2 to 7.7 -- assess for abnormal lymph nodes TECHNIQUE: Greyscale and color doppler imaging was performed of the thyroid gland. COMPARISON: Thyroid ultrasound 06/21/2023. FINDINGS: LEFT THYROID LOBE: Surgically absent. No visualized abnormalities in the thyroid bed. RIGHT THYROID LOBE: Surgically absent. No visualized abnormalities in the thyroid bed. ISTHMUS: Unremarkable. Surgically absent. No visualized abnormalities in the thyroid bed. In the right lateral neck, there is a lymph node which measures 1.1 x 1.1 x 0.5 cm. In the left lateral neck, there is a lymph node which measures 0.9 x 0.6 x 0.6 cm. US/Thyroid IMPRESSION: Status post complete thyroidectomy. No visualized abnormalities in the thyroid bed. Small cervical lymph nodes are seen bilaterally, not definitively abnormal. Electronically Signed: Wali Marte MD at 2:07 EDT ,
== END | disposition home or self-care (01) ==
LOC: US 12:33
PROVIDERS: PCP Family Medicine; Referring Provider Internal Medicine Endocrinology, Diabetes & Metabolism; Visit Provider Internal Medicine Endocrinology, Diabetes & Metabolism
DX: C73 Malignant neoplasm of thyroid gland (principal)
CPT/HCPCS: 76536

== ENCOUNTER → 2024-05-05 | Outpatient (CLI) | payer MEDICAID, SELFPAY ==
--- NOTE | 2024-05-05 | IMM_PTH ---
PATIENT: JORGE SPARROW LOC: [facility] U#:[id number] AGE/SX: 29/M ROOM: RE05/05/[address]: Dr. Anupam Wade MD : 1995 BED: DIS: 05/05/2024 SPEC #: [id number] RECD: 05/06/24 11:18 STATUS: SHMUEL REQ #: [id number] MARIBEL: 05/05/24 00:[address]: Anupam Wade DEPT: IMMUNOHISTOCHEMISTRY RECD BY: Bill Pang ENTERED: 05/06/24 11:19 SP TYPE: IMMUNO OTHR DR: Dr. Miguel Angel Rich DO Tissues: Lymph node, NOS Procedures: HBME (initial) CD56 (add) CK19 (add) GAL-3 (add) PHYSICIAN & INSTITUTION [place] [address] SPECIMEN INFORMATION: Tissue Source: Right cervical lymph node Clinical Info: Malignant neoplasm of thyroid gland, right cervical lymph node- Grade 4 Specimen Number: [id number] CPT code: 65347,52987m9 METHODOLOGY: Deparaffinized sections of prefer/formalin-fixed tissue or PAP/DQ stained slides are incubated with monoclonal/polyclonal antibodies/oligonucleotide probes. Localization is made via biotin free immunoperoxidase method. Appropriate controls are performed and reacted as expected. Results on target cell population are indicated in the following table: RESULTS: ANTIBODY / CLONE RESULT HBME1 (HBME-1) positive CK19 (A53-B/A2.26) positive GAL3 (9C4) negative CD56 (123C3.D5) negative These tests were developed and their performance characteristics determined by [facility]. They may not have been cleared or approved by the U.S. Food and Drug Administration. The FDA has determined that such clearance or approval is not necessary. The above immunohistochemical/dualISH markers are ordered and reviewed by the Pathologist. INTERPRETATION: Right cervical lymph node, fine needle aspiration: Consistent with metastatic carcinoma of thyroid origin. Case has been reviewed in consultation with Dr. Abdul who concurs with the above diagnosis. IDC:ONEAL Abreu 05/07/2024
--- NOTE | 2024-05-05 | ASPIG_PTH ---
PATIENT: JORGE SPARROW LOC: [facility] U#:[id number] AGE/SX: 29/M ROOM: RE05/05/[address]: Dr. Anupam Wade MD : 1995 BED: DIS: 05/05/2024 SPEC #: [id number] RECD: 05/05/24 09:40 STATUS: SHMUEL ARMOND #: [id number] MARIBEL: 05/05/24 00:[address]: Anupam Wade DEPT: CYTOLOGY RECD BY: Sagar Acevedo ENTERED: 05/05/24 10:58 SP TYPE: ASP OUT OTHR DR: Dr. Miguel Angel Rich DO Tissues: A - Lymph node, NOS B - Lymph node, NOS Procedures: FNA Specimen Adequacy Special Stain Group II Surgery Specimen Level IV Cytology Other HEADER OPERATION: Fine needle aspiration of cervical lymph nodes PRE-OP DIAGNOSIS: Malignant neoplasm of thyroid gland, right cervical lymph node- Grade 4 TISSUE SUBMITTED: A- Right cervical lymph nodule fluid, B- Right cervical lymph node slides DIAGNOSIS CYTOLOGY A. Fine needle aspiration, right cervical lymph node (cytospins and cellblock): Metastatic carcinoma. See Comment. B. Fine needle aspiration, right cervical lymph node (smears): Metastatic carcinoma. See Comment. 05/06/2024 COMMENT A & B. Immunohistochemistry ([id number]) supports the above diagnosis. The cytomorphology is suspicious of metastatic papillary carcinoma of thyroid origin. Reference is made to the patient's previous thyroidectomy ([id number]) in which papillary thyroid carcinoma was identified. Case has been reviewed in consultation with Dr. Abdul who concurs with the above diagnosis. IDC:SJ CYTOLOGY STUDY Slides are reviewed. CYTOLOGY GROSS A. Received is 30 ml of red-cloudy fluid labeled with the patient's name and and designated per the requisition as Right cervical lymph node. Submitted for cytology preparation including cell block. B. Received are 4 smears labeled with the patient's name and designated per the requisition as Right cervical lymph node. Submitted for staining. 05/05/2024 TC:0 [facility]: [id number] ADDENDUM ADDENDUM ADDENDUM ADDENDUM ADDENDUM ADDENDUM ADDENDUM ADDENDUM ADDENDUM ADDENDUM ADDENDUM ADDENDUM ADDENDUM 05/24/2024 09:28 ADDENDUM 05/24/2024 09:28 ADDENDUM 05/24/2024 09:28 ADDENDUM 05/24/2024 09:28 ADDENDUM 05/24/2024 09:28 This addendum is added to incorporate an outside pathology consultation report. The case was examined at [facility] (#[id number]) and the following diagnosis was rendered. Right cervical lymph node, fine needle aspiration: Positive for malignant cells. Consistent with the patient's known history of papillary thyroid carcinoma. Please see complete above mentioned consultation report in EMR
== END | disposition home or self-care (01) ==
LOC: LABSPEC 09:50
PROVIDERS: PCP Family Medicine; Referring Provider Surgery; Visit Provider Surgery
DX: C73 Malignant neoplasm of thyroid gland (principal); C77.0 Secondary and unspecified malignant neoplasm of lymph nodes of head, face and neck
CPT/HCPCS: 88161; 88172; 88305; 88313; 88341; 88342

== ENCOUNTER → 2024-07-08 | Outpatient (CLI) | payer MEDICAID, SELFPAY ==
[2024-07-08 14:13] LABS: AST(SGOT) 27 U/L (15-37); Alanine Aminotransfer ALT/SGPT 56 U/L (16-61); Albumin, Serum 4.1 g/dL (3.2-5.0); Alkaline Phosphatase 85 U/L (45-117); Anion Gap 6 (5-15); BUN 10 mg/dL (7-18); BUN/Creat Ratio 13.6 RATIO (10-20); Chloride 102 mmol/L (98-107); Creatinine, Serum 0.73 mg/dL (0.70-1.30); EST Glomerular Filtration Rate 136 mL/min (>60); Est Glom Filt Rate - Afr Amer 165 mL/min (>60); Globulin 4.1 g/dL (2.2-4.2); Glucose 85 mg/dL (74-106); Potassium 3.6 mmol/L (3.5-5.1); Protein, Total 8.2 g/dL (6.4-8.2); Sodium Level 138 mmol/L (136-145); T4 Free Direct 1.07 ng/dL (0.76-1.46)
[2024-07-12 17:07] LABS: Anti-Thyroglobulin AB < 1.0 IU/mL (0.0-0.9); Thyroglobulin, Serum Qt. 0.8 ng/mL (1.4-29.2)
== END | disposition home or self-care (01) ==
LOC: LAB 13:12
PROVIDERS: PCP Family Medicine; Referring Provider Nurse Practitioner Family; Visit Provider Nurse Practitioner Family
DX: E89.0 Postprocedural hypothyroidism (principal); C73 Malignant neoplasm of thyroid gland; E87.6 Hypokalemia
CPT/HCPCS: 36415; 80053; 84432; 84439; 84443; 86800

== ENCOUNTER → 2024-09-16 | Outpatient (CLI) | payer MEDICAID, SELFPAY ==
[2024-09-16 13:52] LABS: Vitamin D,25 Hydroxy 37.5 ng/mL
[2024-09-16 14:00] LABS: AST(SGOT) 30 U/L (15-37); Alanine Aminotransfer ALT/SGPT 63 U/L (16-61); Albumin, Serum 4.2 g/dL (3.2-5.0); Alkaline Phosphatase 94 U/L (45-117); Anion Gap 8 (5-15); BUN 12 mg/dL (7-18); BUN/Creat Ratio 14.2 RATIO (10-20); Calcium,Total 9.2 mg/dL (8.5-10.1); Chloride 102 mmol/L (98-107); Creatinine, Serum 0.85 mg/dL (0.70-1.30); EST Glomerular Filtration Rate 115 mL/min (>60); Est Glom Filt Rate - Afr Amer 139 mL/min (>60); Globulin 4.4 g/dL (2.2-4.2); Glucose 84 mg/dL (74-106); Potassium 3.3 mmol/L (3.5-5.1); Protein, Total 8.6 g/dL (6.4-8.2); Sodium Level 139 mmol/L (136-145); T4 Free Direct 1.42 ng/dL (0.76-1.46); Thyroid Stim Hormone (TSH) 0.504 uIU/mL (0.358-3.740)
[2024-09-20 19:07] LABS: Anti-Thyroglobulin AB < 1.0 IU/mL (0.0-0.9); Thyroglobulin, Serum Qt. 0.4 ng/mL (1.4-29.2)
== END | disposition home or self-care (01) ==
PROVIDERS: PCP Family Medicine; Referring Provider Internal Medicine Endocrinology, Diabetes & Metabolism; Visit Provider Internal Medicine Endocrinology, Diabetes & Metabolism
DX: E89.0 Postprocedural hypothyroidism (principal); C73 Malignant neoplasm of thyroid gland; E87.6 Hypokalemia; E55.9 Vitamin D deficiency, unspecified
CPT/HCPCS: 36415; 80053; 82306; 84432; 84439; 84443; 86800

== ENCOUNTER → 2024-11-30 | Outpatient (CLI) | payer MEDICAID, SELFPAY ==
[2024-11-30 13:12] LABS: Anion Gap 14 (5-15); BUN 11 mg/dL (4-19); BUN/Creat Ratio 13.8 RATIO (10-20); Calcium,Total 9.2 mg/dL (7.6-11.0); Chloride 99 mmol/L (98-108); Creatinine, Serum 0.81 mg/dL (0.70-1.20); EST Glomerular Filtration Rate 124 (>60); Glucose 85 mg/dL (70-99); Potassium 3.4 mmol/L (3.3-5.1); Sodium Level 140 mmol/L (133-145)
[2024-12-03 09:08] LABS: Anti-Thyroglobulin AB < 1.0 IU/mL (0.0-0.9); Thyroglobulin, Serum Qt. 0.5 ng/mL (1.4-29.2)
== END | disposition home or self-care (01) ==
LOC: BIMLAB 10:33
PROVIDERS: PCP Family Medicine; Referring Provider Internal Medicine Endocrinology, Diabetes & Metabolism; Visit Provider Internal Medicine Endocrinology, Diabetes & Metabolism
DX: C73 Malignant neoplasm of thyroid gland (principal); E89.0 Postprocedural hypothyroidism; E87.6 Hypokalemia
CPT/HCPCS: 36415; 80048; 84432; 84443; 86800

== ENCOUNTER → 2025-03-31 | Outpatient (CLI) | payer MEDICAID, SELFPAY ==
[2025-03-31 14:25] LABS: Anion Gap 16 (5-15); BUN 11 mg/dL (4-19); BUN/Creat Ratio 13.4 RATIO (10-20); Calcium,Total 9.1 mg/dL (7.6-11.0); Carbon Dioxide 25.5 mmol/L (21.0-32.0); Chloride 98 mmol/L (98-108); Glucose 89 mg/dL (70-99); Potassium 3.8 mmol/L (3.3-5.1)
== END | disposition home or self-care (01) ==
LOC: LAB 13:06
PROVIDERS: PCP Family Medicine; Visit Provider Family Medicine
DX: R03.0 Elevated blood-pressure reading, without diagnosis of hypertension (principal)
CPT/HCPCS: 36415; 80048

== ENCOUNTER → 2025-06-21 | Outpatient (CLI) | payer MEDICAID, SELFPAY ==
[2025-06-21 12:04] LABS: AST(SGOT) 22 U/L (<=37); Alanine Aminotransfer ALT/SGPT 18 U/L (<=46); Albumin, Serum 4.5 g/dL (3.5-5.0); Alkaline Phosphatase 81 U/L (40-129); Anion Gap 13 (5-15); BUN 11 mg/dL (4-19); BUN/Creat Ratio 16.0 RATIO (10-20); Calcium,Total 9.4 mg/dL (7.6-11.0); Carbon Dioxide 27.0 mmol/L (21.0-32.0); Chloride 99 mmol/L (98-108); Globulin 3.6 g/dL (2.2-4.2); Glucose 82 mg/dL (70-99); Potassium 3.7 mmol/L (3.3-5.1)
[2025-06-23 09:09] LABS: Thyroglobulin, Serum Qt. 0.5 ng/mL (1.4-29.2)
== END | disposition home or self-care (01) ==
LOC: LAB 11:03
PROVIDERS: PCP Family Medicine; Referring Provider Internal Medicine Endocrinology, Diabetes & Metabolism; Visit Provider Internal Medicine Endocrinology, Diabetes & Metabolism
DX: C73 Malignant neoplasm of thyroid gland (principal); E89.2 Postprocedural hypoparathyroidism; E89.0 Postprocedural hypothyroidism
CPT/HCPCS: 36415; 80053; 84432; 84443; 86800